=== PATIENT | female | born 1975 | race Caucasian/White ===

== ENCOUNTER 2017-06-22 21:46 | Inpatient (IN) ==
[2017-06-22] MEDS ORDERED: *HR* Midazolam HCl 2 MG/2 ML VIAL ONE (21:58)
[2017-06-22] MEDS ORDERED: *HR* Midazolam HCl 2 MG/2 ML VIAL IVP ONE (21:58)
[2017-06-22] MEDS ORDERED: D5 IVPB ONE (22:00)
[2017-06-22] MEDS ORDERED: FOSPHENYTOIN IVPB ONE (22:00)
[2017-06-22] MEDS ORDERED: WATER IVPB ONE (22:00)
[2017-06-22] MEDS ORDERED: 0.9 % Sodium Chloride 1,000 ML IVC ONE (22:02)
[2017-06-22 22:32] LABS: Amphetamine Screen,Urine Negative ng/mL (Cutoff=1000); Barbiturate Screen,Urine Negative ng/mL (Cutoff=200); Benzodiazepines Screen,Urine Positive ng/mL (Cutoff=200); Bilirubin,Urine Negative (Negative); Blood,Urine Negative (Negative); Cannabinoid Screen,Urine Negative ng/mL (Cutoff = 50); Clarity,Urine Clear (Clear); Cocaine Screen,Urine Negative ng/mL (Cutoff= 300); Color,Urine Yellow (Yellow); Glucose,Urine (UA) Normal (Normal); Ketones,Urine Negative (Negative); Leukocyte Esterase,Urine Negative (Negative); Nitrite,Urine Negative (Negative); Opiate Screen,Urine Negative ng/mL (Cutoff=300); PH,Urine 8.5 pH Units (5.0-8.0); Phencyclidine Screen,Urine Negative ng/mL (Cutoff=25); Protein,Urine Negative (Neg-Trace); Specific Gravity,Urine 1.015 (1.010-1.025); Urobilinogen,Urine Normal (Normal)
[2017-06-22 22:38] LABS: Basophils # 0.1 K/mcL (0.0-0.2); Basophils % 0.8 %; Eosinophils # 0.2 K/mcL (0.0-0.6); Hematocrit 38.2 % (35.3-44.9); Hemoglobin 12.5 g/dL (11.5-15.4); Immature Granulocytes % 0.5 % (0-4); Lymphocytes # 2.8 K/mcL (0.6-4.6); Lymphocytes % 26.8 %; Mean Corpuscular HGB Conc 32.7 g/dL (31.6-35.5); Mean Corpuscular Volume 91.6 fL (83.0-100.0); Mean Platelet Volume 9.3 fL (9.4-12.4); Monocytes # 0.6 K/mcL (0.0-1.3); Monocytes % 5.3 %; Neutrophils # 6.9 K/mcL (1.6-8.9); Platelet Count 310 K/mcL (140-400); Red Blood Count 4.17 M/mcL (3.82-4.97); Red Cell Distribution Width 14.6 % (11.5-14.5); Segmented Neutrophils % 64.6 %
[2017-06-22 22:52] LABS: Alanine Aminotransferase 27 Units/L (0-55); Albumin 3.4 g/dL (3.5-5.0); Albumin/Globulin Ratio 0.9 (1.1-2.2); Alkaline Phosphatase 73 Units/L (38-126); Aspartate Amino Transferase 30 Units/L (5-34); BUN/Creatinine Ratio 10 (6-26); Bilirubin,Total 0.2 mg/dL (0.2-1.2); Blood Urea Nitrogen 6 mg/dL (7-20); Calcium 9.4 mg/dL (8.6-10.8); Carbon Dioxide 20 mEq/L (19-29); Chloride 111 mEq/L (98-109); Glucose 107 mg/dL (70-99); Magnesium 1.7 mg/dL (1.6-2.6); Osmolality,Calculated 290 (280-300); Phosphorous 3.5 mg/dL (2.3-4.7); Potassium 3.4 mEq/L (3.5-4.5); Sodium 141 mEq/L (136-145); Total Protein 7.4 g/dL (6.0-8.3); eGFR For African Americans > 60 (> 60); eGFR For Non-African Americans > 60 (> 60)
[2017-06-22] MEDS ORDERED: Ketorolac 15 MG/ML VIAL IVP ONE (23:00)
[2017-06-22] MEDS ORDERED: Metoclopramide 10 MG/2 ML VIAL IVP ONE (23:01)
--- NOTE | 2017-06-22 23:05 | Emergency Department Note ---
Disposition Clinical Impression: Seizure, Hx of seizure disorder Disposition: Admitted As Inpatient Condition: Serious Referrals: NONE,PCP [Non-Partnered Physician] - Forms: ED Satisfaction Letter, Work/School Release Time of Disposition: 23:45 Seizure HPI - General Chief Complaint: ED General Medical Stated Complaint: seizure Time Seen by Provider: 06/22/17 21:52 Nursing Notes Reviewed: Yes Vital Signs Reviewed: Yes - History of Present Illness HPI Narrative: Patient is a 41-year-old female with history of previous seizures under care with neurology here [place]. Patient states she sees of neurology. Patient was in postictal state at time of initial exam. Patient states she is allergic to Ativan and diazepam. - Related Data Home Medications Medication Instructions Recorded Confirmed Oxcarbazepine [Trileptal] 600 mg PO BID 05/08/15 03/15/17 SUMAtriptan Succinate [Imitrex] 100 mg PO 1-2XD PRN 05/08/15 03/15/17 Clobazam [Onfi] 5 mg PO BID 02/28/17 03/15/17 Multivitamin [Multi-Day Vitamins] 1 tab PO DAILY 02/28/17 03/15/17 Previous Rx's Medication Instructions Recorded Topiramate [Topamax] 200 mg PO BID #60 tablet 01/11/16 Ciprofloxacin [Cipro] 500 mg PO BID #14 tablet 03/16/17 Allergies Allergy/AdvReac Type Severity Reaction Status Date / Time diazepam [From Valium] Allergy Anaphylaxis Verified 03/15/17 23:14 lorazepam [From Ativan] Allergy Anaphylaxis Verified 03/15/17 23:14 morphine AdvReac Agitated Verified 03/15/17 23:14 All systems ED: reviewed and negative except as stated. Review of Systems: As Per HPI Limitations: ROS unobtainable due to patients medical condition Past Medical History - Past Medical History Attestation: Yes The following information was validated with the patient. Source: patient, obtained from family Medical history: Reports: arthritis, COPD, diabetes, migraine, seizures Surgical history: Reports: no surgical history Psychiatric history: Reports: no psych history [employer] history: Reports: bilateral tubal ligation - Social History Smoking Status: Current every day smoker Smokeless Tobacco Status: No Alcohol use: Reports: none Drug use: Reports: none Physical Exam - General Limitations: altered mental status General appearance: alert, in distress - Eye Eye exam: Present: normal appearance, PERRL, EOMI - ENT ENT exam: normal exam, normal oropharynx, mucous membranes moist - Neck Neck exam: Present: normal inspection, full ROM, trachea midline - Chest Chest inspection: Present: normal inspection, symmetric chest wall rise - Respiratory Respiratory exam: Present: normal lung sounds bilaterally - Cardiovascular Cardiovascular exam: Present: regular rate, normal rhythm, normal heart sounds - Abdominal Exam Abdominal exam: Present: soft, Non-Tender. Absent: tenderness, distention, guarding, rebound, rigidity - Extremities Exam Extremities exam: Present: normal inspection, full ROM. Absent: tenderness, pedal edema Course Vital Signs Temperature 98.5 F 06/22/17 21:48 Pulse Rate 78 06/22/17 21:48 Respiratory Rate 20 06/22/17 21:48 Blood Pressure 114/71 06/22/17 21:48 O2 Sat by Pulse Oximetry 96 06/22/17 21:48 Temperature 98.5 F 06/22/17 21:48 Pulse Rate 78 06/22/17 21:48 Respiratory Rate 20 06/22/17 21:48 Blood Pressure 114/71 06/22/17 21:48 O2 Sat by Pulse Oximetry 96 06/22/17 21:48 Oxygen Delivery Oxygen Delivery Room Air Seizure - MDM Narrative Medical decision making narrative: Patient brought in the just after episode of seizure. Patient in a postictal state. Patient had cleared from medical where she was able to tell us that she is allergic to diazepam and Ativan. Patient could not answer much else. Patient went back to the seizure. Patient was given 2 mg of Versed. Seizure stopped and patient was placed on fosphenytoin. Patient says breaking out in hives placed on Reglan, Benadryl 50 mg, IV normal saline 1 L, given Toradol 10 mg IV to cover for migraine as well. CT scan of the head ordered awaiting results. Patient has admission pending. Neurology has been consulted. Patient states that she falls with neurology here Dr. Cormier but patient has no current records in the system. - Lab Data Lab results reviewed: Yes I reviewed the patient's lab results. Lab results narrative: Short CBC 06/22/17 Range/Units 22:30 WBC 10.6 (4.3-11.1) K/mcL Hgb 12.5 (11.5-15.4) g/dL Hct 38.2 (35.3-44.9) % Plt Count 310 (140-400) K/mcL Neutrophils # 6.9 (1.6-8.9) K/mcL BMP 06/22/17 Range/Units 22:30 Sodium 141 (136-145) mEq/L Potassium 3.4 L (3.5-4.5) mEq/L Chloride 111 H (98-109) mEq/L Carbon Dioxide 20 (19-29) mEq/L BUN 6 L (7-20) mg/dL Creatinine 0.59 (0.57-1.11) mg/dL Glucose 107 H (70-99) mg/dL Calcium 9.4 (8.6-10.8) mg/dL Liver Function 06/22/17 Range/Units 22:30 Total Bilirubin 0.2 (0.2-1.2) mg/dL AST 30 (5-34) Units/L ALT 27 (0-55) Units/L Alkaline Phosphatase 73 (38-126) Units/L Albumin 3.4 L (3.5-5.0) g/dL Urine 06/22/17 Range/Units 22:16 Urine Color Yellow (Yellow) Urine Clarity Clear (Clear) Urine pH 8.5 H (5.0-8.0) pH Units Ur Specific [place] 1.015 (1.010-1.025) Urine Protein Negative (Neg-Trace) mg/dL Urine Glucose (UA) Normal (Normal) mg/dL Result diagrams: 06/22/17 22:30 06/22/17 22:30 Lab Results 06/22/17 06/22/17 06/22/17 Range/Units 21:50 22:16 22:16 WBC (4.3-11.1) K/mcL RBC (3.82-4.97) M/mcL Hgb (11.5-15.4) g/dL Hct (35.3-44.9) % MCV (83.0-100.0) fL MCH (28.0-33.3) pg MCHC (31.6-35.5) g/dL RDW (11.5-14.5) % Plt Count (140-400) K/mcL MPV (9.4-12.4) fL Immature Gran % (0-4) % Seg Neutrophils % % Lymphocytes % % Monocytes % % Eosinophils % % Basophils % % Neutrophils # (1.6-8.9) K/mcL Lymphocytes # (0.6-4.6) K/mcL Monocytes # (0.0-1.3) K/mcL Eosinophils # (0.0-0.6) K/mcL Basophils # (0.0-0.2) K/mcL Sodium (136-145) mEq/L Potassium (3.5-4.5) mEq/L Chloride (98-109) mEq/L Carbon Dioxide (19-29) mEq/L BUN (7-20) mg/dL Creatinine (0.57-1.11) mg/dL Est GFR ( Amer) (> 60) Est GFR (Non-Af Amer) (> 60) BUN/Creatinine Ratio (6-26) Glucose (70-99) mg/dL POC Glucose 111 H (58-89) Calculated Osmolality (280-300) Calcium (8.6-10.8) mg/dL Phosphorus (2.3-4.7) mg/dL Magnesium (1.6-2.6) mg/dL Total Bilirubin (0.2-1.2) mg/dL AST (5-34) Units/L ALT (0-55) Units/L Alkaline Phosphatase (38-126) Units/L Serum Total Protein (6.0-8.3) g/dL Albumin (3.5-5.0) g/dL Globulin (2.4-3.5) g/dL Albumin/Globulin Ratio (1.1-2.2) Urine Color Yellow (Yellow) Urine Clarity Clear (Clear) Urine pH 8.5 H (5.0-8.0) pH Units Ur Specific [place] 1.015 (1.010-1.025) Urine Protein Negative (Neg-Trace) mg/dL Urine Glucose (UA) Normal (Normal) mg/dL Urine Ketones Negative (Negative) mg/dL Urine Blood Negative (Negative) Urine Nitrite Negative (Negative) Urine Bilirubin Negative (Negative) Urine Urobilinogen Normal (Normal) mg/dL Ur Leukocyte Esterase Negative (Negative) Urine Opiates Screen Negative (Qzxwvy=806) ng/mL Ur Barbiturates Screen Negative (Saordc=813) ng/mL Ur Phencyclidine Scrn Negative (Cutoff=25) ng/mL Ur Amphetamines Screen Negative (Ymywwa=3207) ng/mL U Benzodiazepines Scrn Positive H (Jepjys=545) ng/mL Urine Cocaine Screen Negative (Cutoff= 300) ng/mL U Marijuana (THC) Screen Negative (Cutoff = 50) ng/mL 06/22/17 06/22/17 Range/Units 22:30 22:30 WBC 10.6 (4.3-11.1) K/mcL RBC 4.17 (3.82-4.97) M/mcL Hgb 12.5 (11.5-15.4) g/dL Hct 38.2 (35.3-44.9) % MCV 91.6 (83.0-100.0) fL MCH 30.0 (28.0-33.3) pg MCHC 32.7 (31.6-35.5) g/dL RDW 14.6 H (11.5-14.5) % Plt Count 310 (140-400) K/mcL MPV 9.3 L (9.4-12.4) fL Immature Gran % 0.5 (0-4) % Seg Neutrophils % 64.6 % Lymphocytes % 26.8 % Monocytes % 5.3 % Eosinophils % 2.0 % Basophils % 0.8 % Neutrophils # 6.9 (1.6-8.9) K/mcL Lymphocytes # 2.8 (0.6-4.6) K/mcL Monocytes # 0.6 (0.0-1.3) K/mcL Eosinophils # 0.2 (0.0-0.6) K/mcL Basophils # 0.1 (0.0-0.2) K/mcL Sodium 141 (136-145) mEq/L Potassium 3.4 L (3.5-4.5) mEq/L Chloride 111 H (98-109) mEq/L Carbon Dioxide 20 (19-29) mEq/L BUN 6 L (7-20) mg/dL Creatinine 0.59 (0.57-1.11) mg/dL Est GFR ( Amer) > 60 (> 60) Est GFR (Non-Af Amer) > 60 (> 60) BUN/Creatinine Ratio 10 (6-26) Glucose 107 H (70-99) mg/dL POC Glucose (58-89) Calculated Osmolality 290 (280-300) Calcium 9.4 (8.6-10.8) mg/dL Phosphorus 3.5 (2.3-4.7) mg/dL Magnesium 1.7 (1.6-2.6) mg/dL Total Bilirubin 0.2 (0.2-1.2) mg/dL AST 30 (5-34) Units/L ALT 27 (0-55) Units/L Alkaline Phosphatase 73 (38-126) Units/L Serum Total Protein 7.4 (6.0-8.3) g/dL Albumin 3.4 L (3.5-5.0) g/dL Globulin 4.0 H (2.4-3.5) g/dL Albumin/Globulin Ratio 0.9 L (1.1-2.2) Urine Color (Yellow) Urine Clarity (Clear) Urine pH (5.0-8.0) pH Units Ur Specific [place] (1.010-1.025) Urine Protein (Neg-Trace) mg/dL Urine Glucose (UA) (Normal) mg/dL Urine Ketones (Negative) mg/dL Urine Blood (Negative) Urine Nitrite (Negative) Urine Bilirubin (Negative) Urine Urobilinogen (Normal) mg/dL Ur Leukocyte Esterase (Negative) Urine Opiates Screen (Mhupxj=435) ng/mL Ur Barbiturates Screen (Stqwyo=400) ng/mL Ur Phencyclidine Scrn (Cutoff=25) ng/mL Ur Amphetamines Screen (Kvzokw=2725) ng/mL U Benzodiazepines Scrn (Ipsgss=968) ng/mL Urine Cocaine Screen (Cutoff= 300) ng/mL U Marijuana (THC) Screen (Cutoff = 50) ng/mL - Radiology Data Radiology results reviewed: Yes I reviewed the patient's radiology results. - EKG Data EKG attestation: Yes I reviewed and interpreted this EKG. EKG results narrative: EKG taken June at 1252 hrs. shows sinus rhythm at a rate of 76 bpm with no acute ST elevations in any leads. EKG shows ST depressions in V3 V4 and V5. There is EKG for comparison taken 03/20/2016 pulse shows a sinus rhythm at a rate of 94 bpm. Short MN interval no acute ST depressions in any leads. No ST elevations either. Critical Care Time Critical Care Time: Yes Total Critical Care Time: 35 Attestation: Medical care time 35 minutes managing patient status epilepticus. Attestation Statement - Attestation Attestation: Patient was seen with resident physician. I reviewed the history, physical, assessment and plan, and agree with the findings. I also personally evaluated this patient and had [id number] time with this patient. 41-year-old female presents to emergency department with seizures. Patient's had a migraine for the last week. Apparently she fell and hit her head has been having seizures for the last week beyond what she usually has. She is followed by Dr. Genia urrutia [facility]. She has also had a migraine since the fall and she is not sure if this is the trigger. Upon initial presentation patient was postictal. She said she is allergic to Ativan. Patient then began seizing again. She was given Versed 2 mg to help resolve that. She provided some additional history stating that she had a headache. Denied other symptoms. Physical exam vital signs are stable. ENT unremarkable no signs of trauma. Next nontender. Heart and lungs normal. Abdomen is soft and nontender. Extremities unremarkable. Neurologically patient was postictal. There is no focal neurologic deficits. ED course workup was largely unremarkable. She was given Versed and fosphenytoin to control her seizures. She had multiple seizures while in the emergency department but not after she was given the fosphenytoin. Labs were largely unremarkable. CT scan was pending. We did talk to the hospitalist service to arrange for admission but they wanted to make sure the CT scan was clear prior to her coming to the floor. We felt this was reasonable. We signed the patient out to Dr. Bello for final disposition. I do not anticipate a positive head CT scan or disposition other than admitting the patient to the floor. If there are any changes he will provide appropriate addendum. I agree with the resident physician assessment and plan. Critical care time is 35 minutes to manage patient status epilepticus.
[2017-06-23] MEDS ORDERED: Naloxone 0.4 MG/ML INJ IVP PRN (05:59)
[2017-06-23] MEDS ORDERED: *HR* Promethazine 25 MG/ML VIAL IVP PRN (05:59)
--- NOTE | 2017-06-23 06:07 | Internal Med History&Physical ---
Date of Encounter: 06/23/17 Time of Encounter: 06:06 Assessment and Plan (1) Seizure Current visit: Yes Status: Acute Patient is known to have a seizure disorder. She has a follow-up in the neurology from this hospital. Patient is on 3 different antiepileptic medication. Patient is admitted with new onset of seizure. This is likely breakthrough seizures. Likely etiology for her breakthrough seizure is uncontrolled migraine episodes. Plan: 1 neurology on the board. 2 will make sure she gets all her pain medication. 3 fall precaution 4 seizures precaution During the evaluation patient also had another episode of seizure on the floor. Midazolam was given. Rapid response was called. Noted that patient had a fall and tutu CT scan of the spine as well as CT head was ordered. I reviewed the reports of the CT scan. I do not see any major, complex fracture or any traumatic evidence. (2) Lymphocytosis Current visit: No Status: Acute Patient has chronic lymphocytosis and she was seen by oncology. (3) Chronic migraine without aura, intractable, with status migrainosus Current visit: Yes Status: Acute We will control patient's migraine related issues. (4) DVT prophylaxis Current visit: Yes Status: Acute Heparin Medical decision making: This patient has a moderate to severe risk of worsening in spite of being on appropriate medication. Internal Medicine - H&P: HPI Chief complaint: Seizures Admitted From: Emergency Dept Plans for Post Hospital Care: Home History of present illness: 41/F PCP: Torsten pacheco Neurology: Dr Cormier. HPI: Patient had 2 episodes of seizures at home. Patient was unconscious for an unknown duration of time. Patient was evaluated in the emergency room. During the evaluation patient had another episode of seizure. Patient was given midazolam. Mid as well as about the patient's seizures. Patient had another episode of seizures in next 45 minutes. In between neurology was consulted. CT imaging of the brain was within normal limits. Patient was given fosphenytoin in the emergency room and she developed hives. Reason for admission: Recurrent seizures. Patient needs intravenous medication. Family history: Noncontributory Past Med Surg Social Fam HX - Past Medical History Medical history: arthritis, COPD, diabetes, migraine, seizures Psychiatric history: no psych history - Past Surgical History Surgical History: no surgical history - Social History Smoking Status: Current every day smoker Packs per day: 1 Smokeless Tobacco Status: No Alcohol use: none Drug use: none - Family History Mother Living Status: Still Living Hx Family Musculoskeletal Disorders: Yes (arthritis) Father Living Status: Still Living Hx Family Cardiac Disorders: Yes ([place]) Hx Family Cancer: Yes Hx Family Endocrine Disorder: Yes (DM) Internal Medicine - H&P: Meds Oxcarbazepine [Trileptal] 600 mg PO BID 05/08/15 [History] SUMAtriptan Succinate [Imitrex] 100 mg PO 1-2XD PRN 05/08/15 [History] Clobazam [Onfi] 10 mg PO DAILY 02/28/17 [History] Multivitamin [Multi-Day Vitamins] 1 tab PO DAILY 02/28/17 [History] Tizanidine HCl [Tizanidine HCl] 2 mg PO BID PRN 06/23/17 [History] Topiramate [Topiramate] 200 mg PO BID 06/23/17 [History] 3 Allergy/AdvReac Type Severity Reaction Status Date / Time diazepam [From Valium] Allergy Anaphylaxis Verified 03/15/17 23:14 lorazepam [From Ativan] Allergy Anaphylaxis Verified 03/15/17 23:14 fosphenytoin AdvReac Itching Verified 06/23/17 13:21 morphine AdvReac Agitated Verified 03/15/17 23:14 All Systems PM: A 10-system review of systems was performed and is negative for pertinent findings except as documented above in the HPI. - Constitutional Constitutional: no chills, no fever(s), no night sweats - EENT Eyes: no change in vision, no discharge, no pain, no photophobia Ears: no ear discharge, no ear pain, no tinnitus Nose, mouth and throat: no dysphagia, no nasal discharge, no neck pain, no sore throat - Cardiovascular Cardiovascular ROS IM: no chest pain, no diaphoresis, no dyspnea, no lightheadedness, no palpitations, no syncope - Respiratory Respiratory: no cough, no dyspnea, no wheezing, no excessive phlegm production - Gastrointestinal Gastrointestinal: no abdominal pain, no diarrhea, no hematemesis, no hematochezia, no melena, no nausea, no vomiting - Genitourinary Genitourinary: no change in urinary stream, no dysuria, no flank pain, no hematuria - Musculoskeletal Musculoskeletal ROS IM: no numbness, no tingling - Integumentary Integumentary IM: no rash, no unusual bruising - Neurological Neurological ROS: no confusion, no convulsions, no focal weakness, no numbness, no tingling, no tremor(s) - Hematologic/Lymphatic Hematologic/Lymphatic: no easy bruising - Constitutional Vitals: Temp Pulse Resp BP Pulse Ox 97.5 F L 64 19 140/81 98 06/23/17 02:54 06/23/17 02:54 06/23/17 02:54 06/23/17 02:54 06/23/17 02:54 General appearance: Present: A&O X 3, morbidly obese, pleasant, no acute distress, answers questions appropriately - Head Head exam: Present: atraumatic, normocephalic - Eye Eye exam: Present: PERRL, conjuntiva pink, sclera anicteric Pupils: Present: PERRL - Neck Neck exam general surgery: Present: supple, trachea midline. Absent: lymphadenopathy - Respiratory Respiratory exam: Present: CTAB. Absent: accessory muscle use, rales, rhonchi, wheezes - Cardiovascular Cardiovascular exam: Present: RRR, +S1, +S2. Absent: diastolic murmur, gallop, rubs, systolic murmur - GI/Abdominal GI/Abdominal exam: Present: normal bowel sounds, soft, no peritoneal signs. Absent: distended, tenderness - Extremities Exam Extremities exam: Present: warm, radial pulses palpable and symmetrical. Absent : calf tenderness, cyanotic, pedal edema - Neurological Exam Neurological exam: Present: CN II-XII intact, oriented X3, no focal deficits. Absent: pronater drift, facial droop, speech deficit - Skin Skin exam: Present: dry, intact Internal Med - H&P Results - Labs CBC & Chem 7: 06/22/17 22:30 06/22/17 22:30 - Impressions ITS Impressions Head CT 06/23/17 22:02 IMPRESSION: No acute intracranial abnormality. D/ / Dileep Maldonado MD / Dileep Maldonado MD Interpreting Provider: Dileep Maldonado MD
[2017-06-23] MEDS: 0.9 % Sodium Chloride 1,000 ML IVC SCH ×2 (07:42→16:22)
[2017-06-23] MEDS: Topiramate 100 MG TABLET PO SCH ×2 (07:46→22:22)
[2017-06-23] MEDS: OXcarbazepine 150 MG TABLET PO SCH ×2 (07:47→22:21)
[2017-06-23] MEDS: *HR* Heparin 5,000 UNIT/ML VIAL SQ SCH ×2 (07:47→16:22)
[2017-06-23] MEDS: CLOBAZAM 5 MG PO SCH ×2 (07:48→22:36)
[2017-06-23] MEDS: Acetaminophen 325 MG TABLET PO PRN ×2 (08:03→22:21)
[2017-06-23] MEDS ORDERED: *HR* LORazepam 2 MG/ML VIAL ONE (11:20)
[2017-06-23] MEDS ORDERED: Water for inj. (sterile) 0 ML IV ONE (11:20)
[2017-06-23] MEDS ORDERED: *HR* Succinylcholine 200 MG/10 ML VIAL IVP ONE (12:09)
--- NOTE | 2017-06-23 13:27 | Neurology - Consult Note ---
Date of Encounter: 06/23/17 Time of Encounter: 10:45 Assessment and Plan (1) Seizure Current Visit: Yes Status: Acute This patient who has an history of seizure disorder and has multiple seizures in the past and has been maintained on 3 different antiepileptic medication seems to have an breakthrough seizures perhaps it may be precipitated by acute migraine attack. Patient seemed to be back to her baseline no significant focal neurological deficits noted on her current neurological examination. As far as her seizures are constant at this time I would not recommend making any changes in her seizure medication suggested that we should continue on her home dose of Topamax 200 mg twice a day. Continue on Trileptal. Continue on ONFI. We will check the level of these medication to make sure that these are all therapeutic Check for underlying any metabolic abnormalities as well as for any underlying infection that may have precipitated these seizures beside her significant migraine attack She should remain on seizure precautions (2) Chronic migraine without aura, intractable, with status migrainosus Current Visit: Yes Status: Acute Patient had history of chronic migraine headaches and recently the headache seems to be getting worse she does have underlying lateral distress that slightly contributing but at the same time her headaches also seem to be worse during her menstrual cycle. Recently she has been having a lot of menstrual irregularities and in fact she supposed to get surgery in the next few days at [facility] [place]. For these acute headache that she has been complaining a suggest getting her some IV fluids and at the same time may give her a dose of Solu-Medrol she will continue on Zanaflex that she has been taking along with Imitrex on as needed basis for these acute migraine attack. Discussed in detail with the patient she IS AGGREABLE with the plan , if she remains stable she could be discharged by tomorrow History of Present Illness HPI: Ms. Huff is a 41 year old female who is known to me from office visits with a history of intractable epilepsy and has been maintained on multiple antiepileptic medications including Topamax, ONFI, and Trileptal. According to the patient she has been having increasing headaches predominantly around her menstrual cycle and this time her headache was so bad that she think that it may have precipitated her seizure she is not able to give much description about the seizure as she is not aware of her surroundings during this time. She was brought into the emergency room. She did have another seizure there was some concern that she may be due to status but apparently she was awake during this time and able to give information regarding her medication as well as the name of the doctor that she has been seen in the past. Regardless she was loaded with fosphenytoin and had an allergic reaction predominantly rash that was discontinued. Now she seemed to be back to her baseline she has been complaining of significant headaches she did have an history of chronic migraines and has been on medication for prevention but recently headache seems to be getting worse Past Med Surg Social Fam HX - Past Medical History Medical history: arthritis, COPD, diabetes, migraine, seizures Psychiatric history: no psych history - Past Surgical History Surgical History: no surgical history - Social History Smoking Status: Current every day smoker Packs per day: 1 Smokeless Tobacco Status: No Alcohol use: none Drug use: none - Family History Mother Living Status: Still Living Hx Family Musculoskeletal Disorders: Yes (arthritis) Father Living Status: Still Living Hx Family Cardiac Disorders: Yes ([place]) Hx Family Cancer: Yes Hx Family Endocrine Disorder: Yes (DM) Medications and Allergies Oxcarbazepine [Trileptal] 600 mg PO BID 05/08/15 [History] SUMAtriptan Succinate [Imitrex] 100 mg PO 1-2XD PRN 05/08/15 [History] Clobazam [Onfi] 5 mg PO BID 02/28/17 [History] Multivitamin [Multi-Day Vitamins] 1 tab PO DAILY 02/28/17 [History] Tizanidine HCl [Tizanidine HCl] 2 mg PO BID PRN 06/23/17 [History] Topiramate [Topiramate] 200 mg PO BID 06/23/17 [History] 3 Allergy/AdvReac Type Severity Reaction Status Date / Time diazepam [From Valium] Allergy Anaphylaxis Verified 03/15/17 23:14 lorazepam [From Ativan] Allergy Anaphylaxis Verified 03/15/17 23:14 fosphenytoin AdvReac Itching Verified 06/23/17 13:21 morphine AdvReac Agitated Verified 03/15/17 23:14 All Systems: A 10-system review of systems was performed and is negative for pertinent findings except as documented above in the HPI. Physical Examination - Vital Signs Vital Signs: Initial Vital Signs Temp Pulse Resp BP Pulse Ox 98.5 F 78 20 114/71 96 06/22/17 21:48 06/22/17 21:48 06/22/17 21:48 06/22/17 21:48 06/22/17 21:48 - Constitutional General appearance: comfortable - Neurologic Detailed motor examination: full strength in all major muscle groups Motor examination - right side: 02/08: deltoids, biceps, triceps, wrist flexion, wrist extension, slide maker, hip flexors, tibialis Anterior, quadriceps, toe extension (EHL), plantarflexion Motor examination - left side: 02/08: deltoids, biceps, triceps, wrist flexion, wrist extension, hip flexors, slide maker, quadriceps, tibialis Anterior, toe extension (EHL), plantarflexion Mental Status Examination: awake, alert, oriented to person, oriented to place, oriented to time, follows commands appropriately, answers questions appropriately, no agnosia, no aphasia, no aproxia Cranial nerve examination: PERRL, EOMI, visual temple intact, corneal reflexes brisk symmetrically, sensory to face intact, mastication intact, no facial asymmetry is present, no dysarthria, hearing is intact symmetrically, soft palate elevates bilaterally upon phonation, gag reflex intact, flexes SCM and trapezius muscles symmetrically with full power, tongue protrudes midline, no atrophy or facial fasiculations present Cerebellar examination: no dysmetria, performs finger to nose and heel to alston symmetrically without ataxia, no gait ataxia, no truncal ataxia, no difficulty with rapid alternating movements Results - Laboratory Findings CBC and BMP: 06/22/17 22:30 06/22/17 22:30 Abnormal lab findings: Abnormal lab results RDW 14.6 % (11.5-14.5) H 06/22/17 22:30 MPV 9.3 fL (9.4-12.4) L 06/22/17 22:30 Potassium 3.4 mEq/L (3.5-4.5) L 06/22/17 22:30 Chloride 111 mEq/L (98-109) H 06/22/17 22:30 BUN 6 mg/dL (7-20) L 06/22/17 22:30 Glucose 107 mg/dL (70-99) H 06/22/17 22:30 POC Glucose 125 (58-89) H 06/23/17 11:23 Albumin 3.4 g/dL (3.5-5.0) L 06/22/17 22:30 Globulin 4.0 g/dL (2.4-3.5) H 06/22/17 22:30 Albumin/Globulin Ratio 0.9 (1.1-2.2) L 06/22/17 22:30 Urine pH 8.5 pH Units (5.0-8.0) H 06/22/17 22:16 U Benzodiazepines Scrn Positive ng/mL ([id number]=204) H 06/22/17 22:16 Consult Discharge Plan - Plan Referrals: Torsten Ralph CNP [Primary Care Provider] -
[2017-06-23] MEDS ORDERED: *HR* Midazolam HCl 2 MG/2 ML VIAL IVP PRN (15:20)
[2017-06-23] MEDS ORDERED: levETIRAcetam 1,000 MG in 0.9 % Sodium Chloride 100 ML IVPB STA (15:41)
[2017-06-23] MEDS ORDERED: *HR* Midazolam HCl 2 MG/2 ML VIAL IVP SCH (15:45)
--- NOTE | 2017-06-23 15:57 | Event Note ---
<Dante Lua - Last Filed: 06/23/17 15:59> Date of Encounter: 06/23/17 Time of Encounter: 15:55 Rapid response was called to the patient having seizure activity. When I entered the room the patient had a generalized clonic tonic seizure. Versed 2 mg IV push was given immediately and the patient had a break in her seizure- like activity and was able to converse with staff and her mother. Approximately 5 minutes later the patient again had seizure activity. This again broke easily with Versed 2 mg IV push. I spoke with the neurologist health consultant who recommended loading with IV Keppra and ensuring that the patient takes her ONFI assuming she is able. We will transfer the patient to for closer monitoring. <Bacilio Naylor - Last Filed: 06/23/17 20:02> Date of Encounter: 06/23/17 Pt with 2 grand mal seizures - awakened between events. Family at bedside. Keppra to be given. Transfer to .
[2017-06-23] MEDS: *HR* Midazolam HCl 2 MG/2 ML VIAL IVP PRN ×5 (16:09→21:49)
[2017-06-23] MEDS: methylPREDNISolone 125 MG/2 ML VIAL IVP SCH (16:25)
[2017-06-23] MEDS: tiZANidine 4 MG TABLET PO PRN (22:36)
[2017-06-24 00:25] LABS: Bilirubin,Urine Negative (Negative); Blood,Urine Negative (Negative); Clarity,Urine Clear (Clear); Color,Urine Yellow (Yellow); Glucose,Urine (UA) Normal (Normal); Ketones,Urine Negative (Negative); Leukocyte Esterase,Urine Negative (Negative); Nitrite,Urine Negative (Negative); PH,Urine 7.5 pH Units (5.0-8.0); Protein,Urine Negative (Neg-Trace); Specific Gravity,Urine 1.008 (1.010-1.025); Urobilinogen,Urine Normal (Normal)
[2017-06-24 04:54] LABS: Basophils # 0.1 K/mcL (0.0-0.2); Basophils % 0.5 %; Eosinophils % 0.2 %; Hematocrit 36.1 % (35.3-44.9); Hemoglobin 11.8 g/dL (11.5-15.4); Immature Granulocytes % 0.7 % (0-4); Lymphocytes # 3.5 K/mcL (0.6-4.6); Lymphocytes % 31.6 %; Mean Corpuscular HGB Conc 32.7 g/dL (31.6-35.5); Mean Corpuscular Hemoglobin 30.6 pg (28.0-33.3); Mean Corpuscular Volume 93.5 fL (83.0-100.0); Monocytes # 0.4 K/mcL (0.0-1.3); Neutrophils # 6.9 K/mcL (1.6-8.9); Platelet Count 295 K/mcL (140-400); Red Blood Count 3.86 M/mcL (3.82-4.97); Red Cell Distribution Width 14.6 % (11.5-14.5)
[2017-06-24 05:01] LABS: Hemoglobin A1C 5.5 %
[2017-06-24 05:09] LABS: Alanine Aminotransferase 24 Units/L (0-55); Albumin/Globulin Ratio 0.8 (1.1-2.2); Alkaline Phosphatase 63 Units/L (38-126); Aspartate Amino Transferase 25 Units/L (5-34); BUN/Creatinine Ratio 13 (6-26); Bilirubin,Total 0.2 mg/dL (0.2-1.2); Blood Urea Nitrogen 7 mg/dL (7-20); Calcium 8.2 mg/dL (8.6-10.8); Carbon Dioxide 19 mEq/L (19-29); Chloride 113 mEq/L (98-109); Chol/HDL Ratio 6.3 (0-4.9); Cholesterol 202 mg/dL (< 200); Globulin 3.7 g/dL (2.4-3.5); Glucose 98 mg/dL (70-99); HDL Cholesterol 32 mg/dL (40-59); LDL Cholesterol,Calculated 117 mg/dL (0-99); Osmolality,Calculated 284 (280-300); Phosphorous 3.1 mg/dL (2.3-4.7); Potassium 3.8 mEq/L (3.5-4.5); Sodium 138 mEq/L (136-145); Total Protein 6.7 g/dL (6.0-8.3); Triglycerides 263 mg/dL (< 150); eGFR For African Americans > 60 (> 60); eGFR For Non-African Americans > 60 (> 60)
[2017-06-24] MEDS: *HR* Midazolam HCl 2 MG/2 ML VIAL IVP PRN (05:20)
[2017-06-24] MEDS ORDERED: 0.9 % Sodium Chloride 1,000 ML ONE (05:52)
[2017-06-24] MEDS ORDERED: *HR* Midazolam HCl 2 MG/2 ML VIAL ONE (06:04)
--- NOTE | 2017-06-24 06:08 | Procedure Note ---
Date of procedure: 06/24/17 Pre-op diagnosis: Seizure Post-op diagnosis: same Procedure: The patient was placed in a flat position. Sedation was obtained using Versed 4mg, and additionally with Etomidate 20mg. The patient was easily ventilated using an ambu bag. The MAC 3 BLADE was used and inserted into the oropharynx at which time there was a Grade 1 view of the vocal cords. A 7.5-swiss endotracheal tube was inserted and visualized going through the vocal cords. The stylette was removed. Colorimetric change was visualized on the CO2 meter. Breath sounds were heard in both lung temple equally. The endotracheal tube was placed at 23 cm, measured at the teeth. Dr. Cabrera was present for the entire procedure. A chest x-ray was ordered to assess for pneumothorax and verify endotrachealtube placement. Estimated Blood Loss: 0cc The patient tolerated the procedure well and there were no complications. Anesthesia: IV sedation Surgeon: Tc Arthur Estimated blood loss (cc): 0 Pathology: none sent Condition: critical Disposition: ICU
--- NOTE | 2017-06-24 06:16 | Event Note ---
<Tc Arthur - Last Filed: 06/24/17 06:26> Date of Encounter: 06/24/17 Time of Encounter: 05:35 Rapid response was called at 0534 due to recurrent seizure activity despite Versed 2mg IVP at 0520. Patient had three prior seizures yesterday night and was given Versed with relief of symptoms. This time her seizure activity was refractory to Versed and appeared to be in status epilepticus. Upon entering the room patient began having another seizure and an additional 4mg of Versed was administered. Decision was made to intubate patient and transfer to ICU on Versed drip. A total of 20mg of Versed has been given, 20mg of Etomidate during intubation, and 100mg of Succinycholine. Please see intubation note. Neurology was called. Neurologist, Dr. Cormier, requested Stat EEG and Profolol drip. Pulmonology was consulted for ventilator management. <Quinton Cabrera - Last Filed: 06/24/17 06:43> Date of Encounter: 06/24/17 Rapid response was called due to intractable seizures. Patient required multiple doses of Versed. She was successfully intubated. Patient is currently on a Versed drip and has also been started on Propofol. IV Keppra has also been given. I discussed with Dr. Cormier and he wants a stat EEG. Patient's mother has been explained about guarded condition and prognosis.
[2017-06-24] MEDS ORDERED: levETIRAcetam 1,000 MG in 0.9 % Sodium Chloride 100 ML IVPB ONE (06:27)
[2017-06-24] MEDS: *HR* Heparin 5,000 UNIT/ML VIAL SQ SCH ×2 (06:59→17:28)
[2017-06-24] MEDS: methylPREDNISolone 125 MG/2 ML VIAL IVP SCH ×2 (06:59→17:27)
--- NOTE | 2017-06-24 07:34 | Pulmonology Consult Note ---
<Sheyla Rick - Last Filed: 06/24/17 12:20> Date of Encounter: 06/24/17 Time of Encounter: 07:00 Assessment and Plan (1) Status epilepticus Current Visit: Yes Status: Acute This patient has multiple tonic-clonic seizures without returning back to her baseline she had to be intubated and sedated now. EEG was completed that did not show any nonconvulsive status. Continue on propofol and slowly taper her off the Versed drip. IV Keppra 100mg BID, level drawn today Continue on Trileptal as well as ONFI, via NG tube Trying to R/O infectious etiologies for her condition though overall does not look like that she has any sign of FINANCIAL INSTITUTION MANAGER infection. LP will be completed along with addition of vanc/acyclovir/ceftriaxone. Also checking for any underlying vascular anomaly. CT of the head was negative. MRI/MRA of the head and MRA of the neck to be completed as well. (2) Endotracheally intubated Current Visit: Yes Status: Acute Patient intubated due to status epilepticus. Follow ventilation bundle along with trending ABGs. Once patient is stable plan to extubate. (3) Hx of seizure disorder Current Visit: Yes Status: Acute Patient is known to have a seizure disorder. Outpatient follow-up with neurology. Patient currently on 3 antiepileptic medications at home. Neurology consultation (4) Chronic migraine without aura, intractable, with status migrainosus Current Visit: Yes Status: Acute Continue home medications. Follow up as an outpatient for further treatment. (5) DVT prophylaxis Current Visit: Yes Status: Acute History of Present Illness Consult date: 06/24/17 Chief complaint: Status Epilepticus History of present illness: 41-year-old female past medical history of seizure admitted from the emergency department for status epilepticus. The patient has not come out of her post ictal state and is now intubated therefore majority of the information for the subjective part of this note came from charts. Patient went to [place] emergency Department after 2 seizures yesterday. She is allergic to diazepam and lorazepam. The seizure broke after multiple medicine attempts and was transferred to the floor. On the floor patient started to seize and the seizure cannot be broken. Patient was intubated and placed on propofol and midazolam for sedation. CT of the head in the emergency Department was within normal limits. Neurology consulted and will complete an EEG today. Plan to get an MRA and MRI of the head along with an MRA of the neck today to rule out any intracranial abnormality. Patient also to receive a lumbar puncture today. Prophylactically going to treat for meningitis due to increase in seizure- like activity recently along with increasing migraines. Patient also recently went to a chiropractor and had her neck adjusted due to increasing migraines over the past few weeks. Patient currently intubated and sedated at this time. Past Med Surg Social Fam HX - Past Medical History Medical history: arthritis, COPD, diabetes, migraine, seizures Psychiatric history: no psych history - Past Surgical History Surgical History: no surgical history - Social History Smoking Status: Current every day smoker Packs per day: 1 Smokeless Tobacco Status: No Alcohol use: none Drug use: none - Family History Mother Living Status: Still Living Hx Family Musculoskeletal Disorders: Yes (arthritis) Father Living Status: Still Living Hx Family Cardiac Disorders: Yes ([place]) Hx Family Cancer: Yes Hx Family Endocrine Disorder: Yes (DM) Medications and Allergies Oxcarbazepine [Trileptal] 600 mg PO BID 05/08/15 [History] SUMAtriptan Succinate [Imitrex] 100 mg PO 1-2XD PRN 05/08/15 [History] Clobazam [Onfi] 10 mg PO DAILY 02/28/17 [History] Multivitamin [Multi-Day Vitamins] 1 tab PO DAILY 02/28/17 [History] Tizanidine HCl [Tizanidine HCl] 2 mg PO BID PRN 06/23/17 [History] Topiramate [Topiramate] 200 mg PO BID 06/23/17 [History] 3 Allergy/AdvReac Type Severity Reaction Status Date / Time diazepam [From Valium] Allergy Anaphylaxis Verified 03/15/17 23:14 lorazepam [From Ativan] Allergy Anaphylaxis Verified 03/15/17 23:14 fosphenytoin AdvReac Itching Verified 06/23/17 13:21 morphine AdvReac Agitated Verified 03/15/17 23:14 ROS unobtainable: due to endotracheal tube All Systems: A 10-system review of systems was performed and is negative for pertinent findings except as documented above in the HPI. Physical Examination Vital Signs: Vital Signs, Last 4 Hours Temp Pulse Resp BP Pulse Ox 09/18/17 06:23 26 149/87 95 09/18/17 06:22 15 90 06/24/17 06:09 96.8 F L 107 29 163/101 99 06/24/17 05:40 64 112/67 97 06/24/17 04:23 98.3 F 64 18 112/67 97 General appearance: comatose Eyes: nonicteric ENT: oropharynx moist Neck: supple, no JVD Effort: normal Inspection: normal Auscultation: bilateral: clear Cardiovascular: regular rate and rhythm Gastrointestinal: normoactive bowel sounds, soft, non-distended Integumentary: normal Extremities: no cyanosis, no edema Musculoskeletal: no deformities Gait: normal posture unable to assess due to mental status Ventilator Settings Ventilator Settings: Ventilator Settings, Last 8 Hours Ventilator Mode VC+ Ventilator Mode A/C Ventilator Tidal Volume 450 Setting Ventilator Tidal Volume 450 Setting Ventilator Respiratory Rate 16 Setting Ventilator Respiratory Rate 16 Setting Actual Respiratory Rate 26 Positive End Expiratory 5 Pressure Positive End Expiratory 8 Pressure Peak Inspiratory Airway 30 Pressure Results - Laboratory Findings CBC and BMP: 06/24/17 04:18 06/24/17 04:18 Abnormal lab findings: Abnormal lab results RDW 14.6 % (11.5-14.5) H 06/24/17 04:18 Chloride 113 mEq/L (98-109) H 06/24/17 04:18 Creatinine 0.55 mg/dL (0.57-1.11) L 06/24/17 04:18 POC Glucose 137 (58-89) H 06/24/17 06:17 Calcium 8.2 mg/dL (8.6-10.8) L 06/24/17 04:18 Albumin 3.0 g/dL (3.5-5.0) L 06/24/17 04:18 Globulin 3.7 g/dL (2.4-3.5) H 06/24/17 04:18 Albumin/Globulin Ratio 0.8 (1.1-2.2) L 06/24/17 04:18 Triglycerides 263 mg/dL (< 150) H 06/24/17 04:18 Cholesterol 202 mg/dL (< 200) H 06/24/17 04:18 LDL Cholesterol, Calc 117 mg/dL (0-99) H 06/24/17 04:18 VLDL Cholesterol, Calc 53 mg/dL (< 31) H 06/24/17 04:18 HDL Cholesterol 32 mg/dL (40-59) L 06/24/17 04:18 Cholesterol/HDL Ratio 6.3 (0-4.9) H 06/24/17 04:18 Ur Specific Young 1.008 (1.010-1.025) L 06/24/17 00:05 U Benzodiazepines Scrn Positive ng/mL (Vbeofs=369) H 06/22/17 22:16 - Diagnostic Findings Chest x-ray: report reviewed, image reviewed - Clinical Findings Intake & Output: Intake & Output 06/23/17 06/23/17 06/24/17 15:59 23:59 07:59 Intake Total 480 / 480 1110 / 1110 345 / 345 Output Total 1000 / 1000 700 / 700 810 / 810 Balance -520 / -520 410 / 410 -465 / -465 Weight 106.4 kg Consult Discharge Plan - Plan Referrals: Torsten Ralph, COUNTING MACHINE OPERATOR [Primary Care Provider] - <Hola Sanchez - Last Filed: 06/24/17 14:09> Date of Encounter: 06/24/17 All Systems: A 10-system review of systems was performed and is negative for pertinent findings except as documented above in the HPI. Physical Examination Vital Signs: Vital Signs, Last 4 Hours Temp Pulse Resp BP Pulse Ox 06/24/17 09:00 98.1 F 62 17 134/92 99 06/24/17 08:00 96.8 F L 62 16 116/84 98 06/24/17 07:29 16 98 06/24/17 07:27 70 16 120/90 98 06/24/17 06:23 26 149/87 95 06/24/17 06:22 15 90 06/24/17 06:09 96.8 F L 107 29 163/101 99 Ventilator Settings Ventilator Settings: Ventilator Settings, Last 8 Hours Ventilator Mode VC+ Ventilator Mode VC+ Ventilator Mode VC+ Ventilator Mode VC+ Ventilator Mode VC+ Ventilator Mode A/C Ventilator Tidal Volume 450 Setting Ventilator Tidal Volume 450 Setting Ventilator Tidal Volume 450 Setting Ventilator Tidal Volume 450 Setting Ventilator Tidal Volume 450 Setting Ventilator Tidal Volume 450 Setting Ventilator Respiratory Rate 16 Setting Ventilator Respiratory Rate 16 Setting Ventilator Respiratory Rate 16 Setting Ventilator Respiratory Rate 16 Setting Ventilator Respiratory Rate 16 Setting Ventilator Respiratory Rate 16 Setting Actual Respiratory Rate 17 Actual Respiratory Rate 16 Actual Respiratory Rate 17 Actual Respiratory Rate 16 Actual Respiratory Rate 26 Positive End Expiratory 5 Pressure Positive End Expiratory 5 Pressure Positive End Expiratory 5 Pressure Positive End Expiratory 5 Pressure Positive End Expiratory 5 Pressure Positive End Expiratory 8 Pressure Peak Inspiratory Airway 29 Pressure Peak Inspiratory Airway 29 Pressure Peak Inspiratory Airway 31 Pressure Peak Inspiratory Airway 31 Pressure Peak Inspiratory Airway 30 Pressure Results - Laboratory Findings CBC and BMP: 06/24/17 04:18 06/24/17 04:18 Abnormal lab findings: Abnormal lab results RDW 14.6 % (11.5-14.5) H 06/24/17 04:18 Chloride 113 mEq/L (98-109) H 06/24/17 04:18 Creatinine 0.55 mg/dL (0.57-1.11) L 06/24/17 04:18 POC Glucose 137 (58-89) H 06/24/17 06:17 Calcium 8.2 mg/dL (8.6-10.8) L 06/24/17 04:18 Albumin 3.0 g/dL (3.5-5.0) L 06/24/17 04:18 Globulin 3.7 g/dL (2.4-3.5) H 06/24/17 04:18 Albumin/Globulin Ratio 0.8 (1.1-2.2) L 06/24/17 04:18 Triglycerides 263 mg/dL (< 150) H 06/24/17 04:18 Cholesterol 202 mg/dL (< 200) H 06/24/17 04:18 LDL Cholesterol, Calc 117 mg/dL (0-99) H 06/24/17 04:18 VLDL Cholesterol, Calc 53 mg/dL (< 31) H 06/24/17 04:18 HDL Cholesterol 32 mg/dL (40-59) L 06/24/17 04:18 Cholesterol/HDL Ratio 6.3 (0-4.9) H 06/24/17 04:18 Ur Specific Young 1.008 (1.010-1.025) L 06/24/17 00:05 Phenytoin 1.2 mcg/mL (10-20) L 06/24/17 04:18 U Benzodiazepines Scrn Positive ng/mL (Ncrhow=909) H 06/22/17 22:16 - Clinical Findings Intake & Output: Intake & Output 06/23/17 06/24/17 06/24/17 23:59 07:59 15:59 Intake Total 1110 / 1110 455 / 455 Output Total 700 / 700 810 / 810 Balance 410 / 410 -355 / -355 Weight 107.3 kg 107.3 kg - Attending Attestation I examined this patient and my medical decision-making was reviewed with the Resident Physician. I agree with the documented findings, disposition and treatment plan as described except to the extent set forth below. We independently had [id number] contact with the patient Patient seen and examined at bedside Labs, radiology, chart personally reviewed. Management was reviewed during multidisciplinary critical care rounds. Neuropsych: Status epilepticus in the patient with known underlying epilepsy this is likely related non-therapeutic level of multiple antiepileptic medications or possibly migraine. She is well known to the neurology service was following the patient while in house also had recent cervical manipulation by a chiropractor. Possible antecedents although felt less likely but cannot be excluded at this time would be meningitis or CVA. EEG performed today pending results she continues on infusion of propofol and Versed which we will attempt to decrease additionally plan for LP performed by anesthesia or interventional radiology given habitus and prior history of surgery and starting empiric antimicrobials. We will also obtain a MRA of the patient's head and neck Pulm: Patient has been intubated and is on the ventilator for airway protection while receiving continuous infusions of sedatives including propofol and Versed. Spontaneous breathing trial when no longer requiring infusion of sedatives Cards: Blood pressure controlled FEN-GI: Nothing by mouth for now continue PPI prophylaxis to prevent stress ulcers Renal: No evidence of ROCHELLE continue maintenance infusion of crystalloid ID: Possible although considered very unlikely bacterial meningitis versus viral meningitis Heme/Onc: DVT prophylaxis given Endo: Glucose Monitored Integ/MSK: Skin Care per routine ICU Nursing Protocol to prevent ulcers. Lines: All lines examined without evidence of infection Dispo: Remain in ICU today CODE: Full code family including mother and brother updated at bedside
[2017-06-24] MEDS ORDERED: Lacri-Lube 3.5 GM TUBE BOTH EYES PRN (07:55)
[2017-06-24] MEDS: OXcarbazepine 150 MG TABLET PO SCH ×2 (08:14→20:39)
[2017-06-24] MEDS: CLOBAZAM 5 MG PO SCH ×2 (08:14→20:39)
[2017-06-24] MEDS ORDERED: Vancomycin 2,000 MG in D5% in Water 500 ML IVPB ONE (08:45)
[2017-06-24] MEDS ORDERED: 0.9 % Sodium Chloride 1,000 ML IVC SCH (09:00)
[2017-06-24] MEDS: Topiramate 100 MG TABLET PO SCH ×2 (09:10→20:39)
[2017-06-24] MEDS: Lacri-Lube 3.5 GM TUBE BOTH EYES SCH ×5 (09:10→21:11)
[2017-06-24] MEDS: Chlorhexidine Rinse 15 ML MOUTHWASH MM SCH ×2 (09:11→20:00)
[2017-06-24] MEDS: Pantoprazole 40 MG VIAL IVP SCH (09:11)
--- NOTE | 2017-06-24 09:38 | EEG/EMG/Oth Biometrics Report ---
EEG Procedure Report Date of procedure: 06/24/17 Procedure Note: STAT eeg on pt who noted to have status , now intubated, off sedation, before the EEG Routine 21-channel digital EEG was obtained to rule out any seizure activity or focal abnormalities. FINDINGS: Background rhythm during awake stage shows well organized, low voltage fast beta activity in the anterior regions. No [id number] discharges or any lateralizing abnormalities are seen. EMG artifacts and tremor artifacts are noted making the study suboptimal. Photic stimulation did not produce any abnormalities. Stage II sleep was not observed. IMPRESSION: No clear paroxysmal activities or epileptiform discharges were seen. Prominent beta activity in the anterior regions could be secondary to anxiety or medication effect. ( no Post ictal slowing noted)
--- NOTE | 2017-06-24 10:55 | Neurology Progress Note ---
Date of Encounter: 06/24/17 Time of Encounter: 07:35 Assessment and Plan (1) Status epilepticus Current Visit: Yes Status: Acute This patient has multiple tonic-clonic seizures without returning back to her baseline she has to be intubated and sedated now. We just did a stat EEG that did not show any nonconvulsive status. At the moment I suggest that we should continue on propofol and slowly taper her off the Versed drip. She would continue on multiple antiepileptic medication including IV Keppra. Level has been drawn today At the same time she would continue on Trileptal as well as ONFI, via NG tube At the same time we are looking for other infectious etiologies for her condition though overall does not look like that she has any sign of HARNESS INSPECTOR infection but I think the BE reasonable to proceed with a spinal tap she is been started on broad-spectrum antibiotics I suggested that he should continue At the same time also check for any underlying vascular anomaly CT of the head was negative for any acute bleed or infarct but I think once she is a stable he should proceed with the MRI of the brain as well as MRA of the neck with a recent history of chiropractic manipulation for these increasing headaches that she has been experiencing Discussed with the ICU team , as well as with family, will follow patient with you. (2) Seizure Current Visit: Yes Status: Acute (3) Chronic migraine without aura, intractable, with status migrainosus Current Visit: Yes Status: Acute Subjective Interval history: Patient went into status earlier this morning and has to be intubated and now she has been transferred to the ICU she remain on Versed and propofol. She continued to be on her seizure medication Keppra has been added and she has been getting IV Keppra now. Objective - Constitutional Vitals: Temp Pulse Resp BP Pulse Ox 98.1 F 71 17 101/69 99 06/24/17 09:00 06/24/17 10:00 06/24/17 10:00 06/24/17 10:00 06/24/17 10:00 - Neurological Exam Sensorimotor examination: Present: other (Patient is currently intubated and sedated. She is moving all 4 extremities and she is also sedation no focal motor deficit noted on exam) Motor Examination: Present: full strength in all major muscle groups Motor examination - left side: 5/5: deltoids, biceps, triceps, wrist flexion, wrist extension, hip flexors, wind turbine technician, quadriceps, tibialis Anterior, toe extension (EHL), plantarflexion Mental Status Examination: Present: awake, alert, oriented to person, oriented to place, oriented to time, follows commands appropriately, answers questions appropriately, no agnosia, no aphasia, no aproxia Cranial nerve examination: Present: PERRL, EOMI, visual temple intact, corneal reflexes brisk symmetrically, sensory to face intact, mastication intact, no facial asymmetry is present, no dysarthria, hearing is intact symmetrically, soft palate elevates bilaterally upon phonation, gag reflex intact, flexes SCM and trapezius muscles symmetrically with full power, tongue protrudes midline, no atrophy or facial fasiculations present Cerebellar examination: Present: no dysmetria, performs finger to nose and heel to alston symmetrically without ataxia, no gait ataxia, no truncal ataxia, no difficulty with rapid alternating movements Results - Laboratory Findings CBC and BMP: 06/24/17 04:18 06/24/17 04:18 Abnormal lab findings: Abnormal lab results RDW 14.6 % (11.5-14.5) H 06/24/17 04:18 Chloride 113 mEq/L (98-109) H 06/24/17 04:18 Creatinine 0.55 mg/dL (0.57-1.11) L 06/24/17 04:18 POC Glucose 137 (58-89) H 06/24/17 06:17 Calcium 8.2 mg/dL (8.6-10.8) L 06/24/17 04:18 Albumin 3.0 g/dL (3.5-5.0) L 06/24/17 04:18 Globulin 3.7 g/dL (2.4-3.5) H 06/24/17 04:18 Albumin/Globulin Ratio 0.8 (1.1-2.2) L 06/24/17 04:18 Triglycerides 263 mg/dL (< 150) H 06/24/17 04:18 Cholesterol 202 mg/dL (< 200) H 06/24/17 04:18 LDL Cholesterol, Calc 117 mg/dL (0-99) H 06/24/17 04:18 VLDL Cholesterol, Calc 53 mg/dL (< 31) H 06/24/17 04:18 HDL Cholesterol 32 mg/dL (40-59) L 06/24/17 04:18 Cholesterol/HDL Ratio 6.3 (0-4.9) H 06/24/17 04:18 Ur Specific [place] 1.008 (1.010-1.025) L 06/24/17 00:05 Phenytoin 1.2 mcg/mL (10-20) L 06/24/17 04:18 U Benzodiazepines Scrn Positive ng/mL (Jovekn=206) H 06/22/17 22:16 Consult Discharge Plan - Plan Referrals: Torsten Ralph, ASSIGNMENT EDITOR [Primary Care Provider] -
[2017-06-24 11:15] LABS: ABG Base Excess -6.2 mEq/L (-2.0 to 3.0); ABG HCO3 20 mEq/L (21-27); ABG Oxygen Saturation 99 % (95-98); ABG PCO2 39 mmHg (35-45); ABG PH 7.31 pH Units (7.32-7.45); ABG PO2 148 mmHg (85-104); ABG TCO2 20.8 mEq/L (20-26); Blood Gas FiO2 50 %
[2017-06-24] MEDS ORDERED: *HR* Dextrose 50 % in Water (Syg) 50 ML SYRINGE IVP PRN (11:21)
[2017-06-24] MEDS ORDERED: D5% in Water 1,000 ML IVC PRN (11:21)
[2017-06-24] MEDS ORDERED: Dextrose Gel 15 GM PO PRN ×2 (11:21)
[2017-06-24] MEDS: Acyclovir 750 MG in D5% in Water 250 ML IVPB SCH ×2 (11:33→18:28)
[2017-06-24] MEDS: Insulin LISPRO 300 UNITS/3 ML VIAL SQ SCH ×2 (11:50→18:27)
[2017-06-24 11:58] LABS: Bilirubin,Urine Negative (Negative); Blood,Urine Negative (Negative); Color,Urine Yellow (Yellow); Glucose,Urine (UA) Normal (Normal); Ketones,Urine Negative (Negative); Leukocyte Esterase,Urine Negative (Negative); Nitrite,Urine Negative (Negative); Protein,Urine Negative (Neg-Trace); Specific Gravity,Urine 1.015 (1.010-1.025); Urobilinogen,Urine Normal (Normal)
[2017-06-24 12:02] LABS: Clarity,Urine Clear (Clear)
[2017-06-24] MEDS ORDERED: *HR* Midazolam HCl 2 MG/2 ML VIAL IV ONE (12:09)
[2017-06-24] MEDS ORDERED: *HR* Midazolam HCl 5 MG/5 ML VIAL IVP ONE (12:09)
[2017-06-24] MEDS ORDERED: *HR* Etomidate 20 MG/10 ML AMPUL IVP ONE (12:09)
[2017-06-24] MEDS: Ringers Solution, Lactated 1,000 ML IVC SCH ×2 (12:30→19:41)
--- NOTE | 2017-06-24 13:14 | Anesthesia Procedures ---
Date of Encounter: 06/24/17 Time of Encounter: 12:30 Procedures: Anesthesia - Lumbar Puncture Patient ID/Chart reviewed: Yes Patient examined: Yes Any signs of Infection or bacteremia: No Patient on Blood thinners: No Consent Obtained: written consent (by mother "Ainsley") Time Out Performed: Yes Patient Position: right lateral decubitus Site Prep: Aseptic Technique, Sterile prep and drape, Povidone-Iodine 1% Local Anesthetic Used: Lidocaine 1% Amount of anesthesia used (mls): 3 Spinal Needle Gauge: 20G Interspace Used: L4-L5 Opening Pressure (cmH20): 21 Fluid Initially Obtained: clear Complications: none Additional Comments:: Patient in the ICU on the ventilator. Patient with intractable seizures. History of seizures since age 9. Have never been well controlled per the mother. Neurology requested the LP but felt that they could not do it due to size and previous back surgery. IR would not perform due to being on the ventilator. I was able to access the intrathecal space easily, initially had some blood but this cleared quickly. 4 tubes obtained with approximately 2cc in each. Opening pressure was 21. Fluid was clear and colorless. Bandaide applied after needle withdrawn.
[2017-06-24 13:32] LABS: Red Blood Cell,CSF < 0.002 M/mcL
[2017-06-24 14:13] LABS: Glucose,CSF 113 mg/dL (40-70); Total Protein,CSF 46 mg/dL (15-45)
[2017-06-24 14:31] LABS: Appearance,CSF Clear (Clear)
[2017-06-24] MEDS ORDERED: Dexmedetomidine HCl 400 MCG/100 ML MLS IVC SCH (15:45)
[2017-06-24] MEDS ORDERED: Ketorolac 15 MG/ML VIAL IVP ONE (20:01)
[2017-06-24] MEDS: levETIRAcetam 1,000 MG in 0.9 % Sodium Chloride 100 ML IVPB SCH (20:38)
[2017-06-24] MEDS: tiZANidine 4 MG TABLET PO PRN (20:43)
--- NOTE | 2017-06-24 21:51 | Electrocardiograph Report ---
[address] [place] [address] Test Date: 2017-06-22 Pat Name: Faiza Huff Department: 105 Room: 12 Gender: F Reconstructive Dentist: GABE : 1975 Requested By: Harmeet Ignacio Order Number: [id number] Reading MD: Steve Sandy MD Measurements Intervals [place] Rate: 76 P: 138 TN: 102 QRS: 160 QRSD: 89 T: 129 QT: 407 QTc: 437 Interpretive Statements SINUS RHYTHM WITH SHORT TN INTERVAL BASELINE ARTIFACT Electronically Signed On 06-24-2017 21:50:31 EDT by Steve Sandy MD
[2017-06-25] MEDS: *HR* Midazolam HCl 2 MG/2 ML VIAL IVP PRN (00:20)
[2017-06-25] MEDS ORDERED: *HR* Midazolam HCl 2 MG/2 ML VIAL IVP ONE ×2 (00:37→01:16)
[2017-06-25] MEDS ORDERED: 0.9 % Sodium Chloride 1,000 ML IV ONE (01:05)
[2017-06-25] MEDS ORDERED: 0.9 % Sodium Chloride 1,000 ML ONE (01:07)
--- NOTE | 2017-06-25 01:41 | Event Note ---
<Tc Arthur - Last Filed: 06/25/17 01:51> Date of Encounter: 06/25/17 Time of Encounter: 01:36 Patient had recurrent seizure activity x3 despite 4mg of Versed being administered. Patient began seizing repeatedly every few minutes and a call was placed to critical care physician, Dr. Sanchez. Patient had a total of 5 seizures before decision was made to reintubate patient and re-sedate on Versed and Propofol drip. The patient was placed in a flat position. A total of Versed 24mg and Etomidate 20mg were given during intubation. The patient was easily ventilated using an ambu bag. The MAC 3 BLADE was attempted at first but the patient had difficult airway and I was unable to successfully cannulate the airway. The airway was successfully cannulated by respiratory therapy with the Glidoscope after an intubation attempt by Dr. Hernandez. A 7.5-kenyan endotracheal tube was inserted and visualized going through the vocal cords. The stylette was removed. Colorimetric change was visualized on the CO2 meter. Breath sounds were heard in both lung temple equally. The endotracheal tube was placed at 21 cm, measured at the teeth. Dr. Hernandez was present for the entire procedure. A chest x-ray was ordered to assess for pneumothorax and verify endotracheal tube placement. KUB was ordered to verify OG tube placement. Estimated Blood Loss: 0cc. The patient tolerated the procedure well and there were no complications. A call was place to Neurologist, Dr. Cormier who agreed with current plan. <Johnathan Hernandez - Last Filed: 06/25/17 03:30> Date of Encounter: 06/25/17 Dr. Arthur called me right away when the above seizures started. She had several seizures in a row. By the time I arrived, her seizures broke. I then contacted Dr. Sanchez to discuss next plan of action. In the midst of our phone conversation, patient began seizing again. We decided at that time to proceed with intubation to protect her airway and administer further Versed to abort her seizures. Her seizures easily aborted after another dose of Versed. However, it took several more doses of Versed and Etomidate 30 mg to adequately sedate her for intubation. Dr. Arthur failed to adequately cannulate her airway and I then attempted as well. However, I was unsuccessful too. I therefore contacted anesthesia to assist as I suspected we may need to use a paralytic and further assistance. As we were waiting for anesthesia, respiratory therapy was able to successfully intubate and secure an airway. Pt tolerated procedure well with no immediate complications. I then contacted Dr. Cormier and discussed with him as well. He recommends continuing her on Versed drip and using Propofol as well for adequate sedation. He will repeat EEG in the morning and further advise. She has not had any further seizures with the last dose of Versed and since initiating Versed drip.
[2017-06-25] MEDS: Insulin LISPRO 300 UNITS/3 ML VIAL SQ SCH ×2 (02:18→05:28)
[2017-06-25] MEDS: Acyclovir 750 MG in D5% in Water 250 ML IVPB SCH ×2 (02:21→09:48)
[2017-06-25 03:10] LABS: ABG Base Excess -2.1 mEq/L (-2.0 to 3.0); ABG HCO3 23 mEq/L (21-27); ABG Oxygen Saturation 95 % (95-98); ABG PCO2 41 mmHg (35-45); ABG PH 7.36 pH Units (7.32-7.45); ABG PO2 81 mmHg (85-104); ABG TCO2 24.5 mEq/L (20-26); Blood Gas FiO2 40 %
[2017-06-25] MEDS: Lacri-Lube 3.5 GM TUBE BOTH EYES SCH ×2 (04:42→08:43)
[2017-06-25 04:58] LABS: Basophils % 0.2 %; Eosinophils % 0.1 %; Hematocrit 34.4 % (35.3-44.9); Immature Granulocytes % 0.6 % (0-4); Lymphocytes # 3.6 K/mcL (0.6-4.6); Lymphocytes % 25.7 %; Mean Corpuscular Hemoglobin 30.2 pg (28.0-33.3); Mean Corpuscular Volume 94.5 fL (83.0-100.0); Mean Platelet Volume 9.3 fL (9.4-12.4); Monocytes # 0.5 K/mcL (0.0-1.3); Monocytes % 3.9 %; Neutrophils # 9.7 K/mcL (1.6-8.9); Platelet Count 276 K/mcL (140-400); Red Blood Count 3.64 M/mcL (3.82-4.97); Red Cell Distribution Width 14.6 % (11.5-14.5); Segmented Neutrophils % 69.5 %
[2017-06-25 05:09] LABS: BUN/Creatinine Ratio 15 (6-26); Blood Urea Nitrogen 8 mg/dL (7-20); Carbon Dioxide 21 mEq/L (19-29); Chloride 112 mEq/L (98-109); Glucose 109 mg/dL (70-99); Magnesium 1.8 mg/dL (1.6-2.6); Osmolality,Calculated 289 (280-300); Potassium 3.3 mEq/L (3.5-4.5); Sodium 140 mEq/L (136-145); eGFR For African Americans > 60 (> 60); eGFR For Non-African Americans > 60 (> 60)
[2017-06-25] MEDS: Ringers Solution, Lactated 1,000 ML IVC SCH (05:29)
[2017-06-25] MEDS: methylPREDNISolone 125 MG/2 ML VIAL IVP SCH (05:33)
[2017-06-25] MEDS: *HR* Heparin 5,000 UNIT/ML VIAL SQ SCH (05:33)
--- NOTE | 2017-06-25 06:58 | Pulmonology Progress Note ---
Date of Encounter: 06/25/17 Time of Encounter: 06:57 Assessment and Plan (1) Status epilepticus Current Visit: Yes Status: Acute Management was reviewed during multidisciplinary critical care rounds. SCULPTURE INSTRUCTOR: Status epilepticus in the patient with known underlying epilepsy acute CVA and meningitis have essentially been excluded as etiology despite 5 antiepileptic medications she has had breakthrough seizures and had to be reintubated overnight this is prompted discussion with the patient's primary neurologist for plan to transfer patient to [place] to [facility] where continuous EEG monitoring is available for further treatment of this refractory case of seizure disorder. We will cont antiepileptic medications Pulm: Patient has been intubated and is on the ventilator for airway protection while receiving continuous infusions of sedatives including propofol and Versed. Spontaneous breathing trial when no longer requiring infusion of sedatives Cards: Blood pressure controlled FEN-GI: Nothing by mouth for now continue PPI prophylaxis to prevent stress ulcers Renal: No evidence of ROCHELLE are rhabdomyolysis continue infusion of crystalloid while nothing by mouth ID: CSF not consistent with meningitis stopping antimicrobials Heme/Onc: DVT prophylaxis given Endo: Glucose Monitored and controlled bolus dosing of insulin as needed Integ/MSK: Skin Care per routine ICU Nursing Protocol to prevent ulcers. Lines: All lines examined without evidence of infection Dispo: Transfer to [facility] today CODE: Full code family including mother and aunt updated at bedside and they are in agreement with plan along with the patient's (2) Acute respiratory failure Current Visit: Yes Status: Acute Qualifiers: Respiratory failure complication: unspecified whether with hypoxia or hypercapnia Qualified Code(s): J96.00 - Acute respiratory failure, unspecified whether with hypoxia or hypercapnia (3) Hx of seizure disorder Current Visit: Yes Status: Acute (4) DVT prophylaxis Current Visit: Yes Status: Acute (5) Endotracheally intubated Current Visit: Yes Status: Acute Subjective Principal diagnosis: Status epilepticus Interval history: SI she was successfully extubated did well and was able to engage with her family for many hours around 1 AM she began experiencing seizure-like activity again which resulted in reintubation for airway protection and deep sedation with Versed and propofol there has not been any more witnessed seizure-like activity subsequently. She is otherwise hemodynamically stable. MRI of brain and neck were without any acute changes and CSF was not consistent with bacterial meningitis and frankly extremely unlikely to be viral meningitis either. Objective PUL Vital signs: Last Vital Signs Temp 96.9 F L 06/25/17 04:00 Pulse 77 06/25/17 06:00 Resp 16 06/25/17 06:06 BP 136/78 06/25/17 06:06 Pulse Ox 100 06/25/17 06:06 General appearance: other (Sedated) Eyes: nonicteric ENT: other (Endotracheal tube in satisfactory position) Auscultation: bilateral: clear Cardiovascular: regular rate and rhythm Gastrointestinal: normoactive bowel sounds Integumentary: normal Extremities: no edema pupils equal and round, unable to assess due to mental status Ventilator Settings Ventilator Settings: Ventilator Settings, Last 8 Hours Ventilator Mode VC+ Ventilator Mode VC+ Ventilator Mode VC+ Ventilator Mode VC+ Ventilator Tidal Volume 450 Setting Ventilator Tidal Volume 450 Setting Ventilator Tidal Volume 450 Setting Ventilator Tidal Volume 450 Setting Ventilator Respiratory Rate 16 Setting Ventilator Respiratory Rate 16 Setting Ventilator Respiratory Rate 16 Setting Ventilator Respiratory Rate 16 Setting Actual Respiratory Rate 16 Actual Respiratory Rate 16 Actual Respiratory Rate 26 Positive End Expiratory 5 Pressure Positive End Expiratory 5 Pressure Positive End Expiratory 5 Pressure Positive End Expiratory 5 Pressure Peak Inspiratory Airway 21 Pressure Peak Inspiratory Airway 25 Pressure Peak Inspiratory Airway 26 Pressure Results - Laboratory Findings CBC and BMP: 06/25/17 04:51 06/25/17 04:51 ABG ABG pH 7.36 pH Units (7.32-7.45) 06/25/17 03:00 ABG pCO2 41 mmHg (35-45) 06/25/17 03:00 ABG pO2 81 mmHg (85-104) L 06/25/17 03:00 ABG O2 Saturation 95 % (95-98) 06/25/17 03:00 Abnormal lab findings: Abnormal lab results WBC 14.0 K/mcL (4.3-11.1) H 06/25/17 04:51 RBC 3.64 M/mcL (3.82-4.97) L 06/25/17 04:51 Hgb 11.0 g/dL (11.5-15.4) L 06/25/17 04:51 Hct 34.4 % (35.3-44.9) L 06/25/17 04:51 RDW 14.6 % (11.5-14.5) H 06/25/17 04:51 MPV 9.3 fL (9.4-12.4) L 06/25/17 04:51 Neutrophils # 9.7 K/mcL (1.6-8.9) H 06/25/17 04:51 ABG pO2 81 mmHg (85-104) L 06/25/17 03:00 ABG Base Excess -2.1 mEq/L (-2.0 to 3.0) L 06/25/17 03:00 Potassium 3.3 mEq/L (3.5-4.5) L 06/25/17 04:51 Chloride 112 mEq/L (98-109) H 06/25/17 04:51 Creatinine 0.55 mg/dL (0.57-1.11) L 06/25/17 04:51 Glucose 109 mg/dL (70-99) H 06/25/17 04:51 POC Glucose 111 (58-89) H 06/25/17 05:27 Calcium 8.0 mg/dL (8.6-10.8) L 06/25/17 04:51 Ionized Calcium 1.05 mmol/L (1.15-1.35) L 06/24/17 11:42 Albumin 3.0 g/dL (3.5-5.0) L 06/24/17 04:18 Globulin 3.7 g/dL (2.4-3.5) H 06/24/17 04:18 Albumin/Globulin Ratio 0.8 (1.1-2.2) L 06/24/17 04:18 Triglycerides 263 mg/dL (< 150) H 06/24/17 04:18 Cholesterol 202 mg/dL (< 200) H 06/24/17 04:18 LDL Cholesterol, Calc 117 mg/dL (0-99) H 06/24/17 04:18 VLDL Cholesterol, Calc 53 mg/dL (< 31) H 06/24/17 04:18 HDL Cholesterol 32 mg/dL (40-59) L 06/24/17 04:18 Cholesterol/HDL Ratio 6.3 (0-4.9) H 06/24/17 04:18 CSF Tot Nucleated Cells 10 TNC/mcL (0-5) H 06/24/17 13:06 CSF Glucose 113 mg/dL (40-70) H 06/24/17 13:06 CSF Total Protein 46 mg/dL (15-45) H 06/24/17 13:06 Phenytoin 1.2 mcg/mL (10-20) L 06/24/17 04:18 U Benzodiazepines Scrn Positive ng/mL (Jeflts=783) H 06/22/17 22:16 - Microbiology Findings Microbiology Findings: Microbiology, Last 48 Hours 06/24/17 12:45 Sputum Culture - Preliminary Sputum 06/24/17 13:06 CSF Culture - Preliminary Cerebral Spinal Fluid - Diagnostic Findings Chest x-ray: report reviewed, image reviewed - Clinical Findings Intake & Output: Intake & Output 06/24/17 06/24/17 06/25/17 15:59 23:59 07:59 Intake Total 1140 / 1140 890 / 890 950 / 950 Output Total 600 / 600 350 / 350 850 / 850 Balance 540 / 540 540 / 540 100 / 100 Weight 107.3 kg 113.3 kg Consult Discharge Plan - Plan Referrals: Torsten Ralph, OIM ARCHITECT [Primary Care Provider] -
[2017-06-25 07:33] LABS: Creatine Kinase 58 Units/L (29-168)
[2017-06-25] MEDS: Pantoprazole 40 MG VIAL IVP SCH (09:48)
[2017-06-25] MEDS: Chlorhexidine Rinse 15 ML MOUTHWASH MM SCH (09:48)
[2017-06-25] MEDS: Topiramate 100 MG TABLET PO SCH (09:48)
[2017-06-25] MEDS: OXcarbazepine 150 MG TABLET PO SCH (09:48)
[2017-06-25] MEDS: CLOBAZAM 5 MG PO SCH (09:49)
[2017-06-25] MEDS: levETIRAcetam 1,000 MG in 0.9 % Sodium Chloride 100 ML IVPB SCH (09:53)
[2017-06-25 11:14] VITALS: BP 114/67
[2017-06-25] MEDS ORDERED: *HR* Midazolam HCl 5 MG/5 ML VIAL IVP ONE (12:09)
[2017-06-25] MEDS ORDERED: *HR* Etomidate 40 MG/20 ML VIAL IVP ONE (12:09)
[2017-06-25] MEDS ORDERED: *HR* Midazolam HCl 2 MG/2 ML VIAL IV ONE ×4 (12:09)
--- NOTE | 2017-06-25 13:06 | Discharge Summary ---
Date of Encounter: 06/25/17 Time of Encounter: 13:03 - Discharge Diagnosis (1) Status epilepticus Priority: Primary Status: Acute (2) Acute respiratory failure Priority: Secondary Status: Acute Qualifiers: Respiratory failure complication: unspecified whether with hypoxia or hypercapnia Qualified Code(s): J96.00 - Acute respiratory failure, unspecified whether with hypoxia or hypercapnia (3) Hx of seizure disorder Priority: Secondary Status: Acute (4) DVT prophylaxis Priority: Secondary Status: Acute (5) Endotracheally intubated Priority: Secondary Status: Acute - Discharge Medications Home Medications: Oxcarbazepine [Trileptal] 600 mg PO BID 05/08/15 [History] SUMAtriptan Succinate [Imitrex] 100 mg PO 1-2XD PRN 05/08/15 [History] Clobazam [Onfi] 10 mg PO DAILY 02/28/17 [History] Multivitamin [Multi-Day Vitamins] 1 tab PO DAILY 02/28/17 [History] Tizanidine HCl [Tizanidine HCl] 2 mg PO BID PRN 06/23/17 [History] Topiramate [Topiramate] 200 mg PO BID 06/23/17 [History] Allergies/Adverse Reactions: 3 Allergy/AdvReac Type Severity Reaction Status Date / Time diazepam [From Valium] Allergy Anaphylaxis Verified 03/15/17 23:14 lorazepam [From Ativan] Allergy Anaphylaxis Verified 03/15/17 23:14 fosphenytoin AdvReac Itching Verified 06/23/17 13:21 morphine AdvReac Agitated Verified 03/15/17 23:14 Procedures/tests Complete & Pending: Procedures Performed prior 72 hours Category Date Time Status CT cervical spine wo con [CT] Stat Cat Scan 06/23/17 11:[address] head/brain wo con [CT] Stat Cat Scan 06/23/17 11:[address] lumbar spine wo con [CT] Stat Cat Scan 06/23/17 11:[address] thoracic spine wo con [CT] Stat Cat Scan 06/23/17 11:24 Completed MR angio head wo con [MR] Stat MRI 06/24/17 08:28 Completed MR angio neck wo con [MR] Stat MRI 06/24/17 08:28 Completed MR head/brain wo con [MR] Stat MRI 06/24/17 08:28 Completed Date of admission: 06/23/17 02:11 Primary care physician: Torsten Ralph CNP Consults: 06/23/17 06:03 Consult to Occupational Therapy [CONS] Routine Comment: Evaluate, develop and implement POC Reason for Consult: post ictal state Consult to Physical Therapy [CONS] Routine Comment: Evaluate, develop and implement POC Reason for Consult: post ictal state 06/24/17 06:22 Consult to Pulmonology [CONS] Routine Consulting Provider: Pulm Crit [facility] & [facility] Reason for Consult: vent management Call Completed: Yes 06/24/17 08:27 Consult to Interventional Radiology [CONS] Stat Consulting Provider: Radiology Interventional [facility]s Reason for Consult: LP Call Completed: Yes 06/24/17 11:18 Consult to Anesthesiology [CONS] Stat Consulting Provider: Anesthesia [facility] Reason for Consult: LP Call Completed: Yes 06/24/17 11:23 Consult to Interpret Exam [CONS] Routine Consulting Provider: Jun Cormier I Consult to Interpret Exam: Interpret EEG Discharging clinician: Hola Sanchez Anticipated date of discharge: 06/25/17 - Patient Status Disposition: Transfer Other Overall status at discharge: patient is not back to baseline - Discharge Instructions Follow Up With: Torsten Ralph CNP [Primary Care Provider] - Interval History: Patient admitted with known seizure disorder with active seizing noted. Which progressed to status epilepticus requiring intubation she was loaded with Keppra in addition to continuation of her home antiepileptic medications and continuous infusion of propofol and Versed and neurology had been consulted and EEG will performed was not consistent with epileptiform activity and additional studies including MRI of brain and neck not consistent with acute CVA and lumbar puncture for evaluation of CSF was not consistent with meningitis. Patient was successfully liberated from the ventilator on 06/24 however in the early childhood of 06/25 had another convulsive. That was deemed to be status epilepticus and she was intubated for airway protection and for continuous infusion of sedatives. Discussion with neurologist prompted transfer to tertiary referral center for continuous EEG monitoring she is except for transfer by [facility] and was discharged in stable condition on the [facility] course: Ms. Huff is a 41 year old female - Time Spent with Patient Total time spent providing and/or coordinating discharge services: Greater than 30 minutes - Constitutional Vitals: Temp Pulse Resp BP Pulse Ox 98.5 F 98 27 114/67 94 09/19/17 11:12 06/25/17 11:19 06/25/17 11:12 06/25/17 11:12 06/25/17 11:12 See today's physical examination as it was conducted at the time that patient was to be discharged from hospital
--- NOTE | 2017-06-25 14:23 | Neurology Progress Note ---
Date of Encounter: 06/25/17 Time of Encounter: 07:45 Assessment and Plan (1) Status epilepticus Status: Acute Patient had an other spell of multiple seizures that need to be reintubated and now she remains on Versed and propofol she remains on multiple anticonvulsive medication including IV load of Keppra, Topamax, Trileptal, and ONFI. So far her workup including MRI of the brain as well as a spinal tap also been negative Stat EEG also did not shows any evidence of significant epileptiform discharges in fact for someone who is venous status seems to be quite and usually normal without any focal slowing or any other significant abnormality noted on EEG As she is remains on multiple anticonvulsive medication with significantly normal EEG and normal workup including MRI and a spinal tap at this time I do think that we need to look into other causes of these seizures in fact we do have to feel our diagnoses that indeed these true epileptic status because are these are some other spells of altered consciousness, perhaps may be a CONVERSION REACTION, so far we have excluded all infectious and metabolic abnormalities as well as any vascualar abnormalities, at this point I recommend , the patient needed to be transferred to a tertiary care center for continuous EEG monitoring particularly when she is off sedation and to see indeed these true epileptic spells or perhaps any other underlying behavioral process. discussed in detail with the ICU team as well as the patient mother who also agrees with the plan. (2) Seizure Status: Acute (3) Chronic migraine without aura, intractable, with status migrainosus Status: Acute Subjective Principal diagnosis: Status epilepticus Interval history: Patient went into status again last night and has to be intubated, she did well yesterday and as no seizures earlier in evening she was extubated, she was quite alert and awake and was able to have an conversation though she remains quite worried about her upcoming surgery as well as about her father who was recently diagnosed with stomach cancer, Mother also acknowledges that she has been under a lot of stress and perhaps may be the contributing factor to these multiple seizures that she has been experiencing regardless she did fairly well and was extubated until last night when she went into few [id number] seizures and because of that she got to be intubated to protect her airways. She continued to be on Keppra in addition to continuation of her home antiepileptic medications and continuous infusion of propofol and Versed, MRI of brain and neck not consistent with acute CVA , lumbar puncture for evaluation of CSF was not consistent with meningitis. Remain intubated this morning and remain on propofol and Versed e Objective - Constitutional Vitals: Temp Pulse Resp BP Pulse Ox 98.5 F 98 27 114/67 94 06/25/17 11:12 06/25/17 11:19 06/25/17 11:12 06/25/17 11:12 06/25/17 11:12 - Neurological Exam Sensorimotor examination: Present: other (Limited neurological examination due to sedation and intubation) Motor Examination: Present: full strength in all major muscle groups Motor examination - left side: 02/08: deltoids, biceps, triceps, wrist flexion, wrist extension, hip flexors, mud logger, quadriceps, tibialis Anterior, toe extension (EHL), plantarflexion Mental Status Examination: Present: awake, alert, oriented to person, oriented to place, oriented to time, follows commands appropriately, answers questions appropriately, no agnosia, no aphasia, no aproxia Cranial nerve examination: Present: PERRL, EOMI, visual temple intact, corneal reflexes brisk symmetrically, sensory to face intact, mastication intact, no facial asymmetry is present, no dysarthria, hearing is intact symmetrically, soft palate elevates bilaterally upon phonation, gag reflex intact, flexes SCM and trapezius muscles symmetrically with full power, tongue protrudes midline, no atrophy or facial fasiculations present Cerebellar examination: Present: no dysmetria, performs finger to nose and heel to alston symmetrically without ataxia, no gait ataxia, no truncal ataxia, no difficulty with rapid alternating movements Results - Laboratory Findings CBC and BMP: 06/25/17 04:51 06/25/17 04:51 Abnormal lab findings: Abnormal lab results WBC 14.0 K/mcL (4.3-11.1) H 06/25/17 04:51 RBC 3.64 M/mcL (3.82-4.97) L 06/25/17 04:51 Hgb 11.0 g/dL (11.5-15.4) L 06/25/17 04:51 Hct 34.4 % (35.3-44.9) L 06/25/17 04:51 RDW 14.6 % (11.5-14.5) H 06/25/17 04:51 MPV 9.3 fL (9.4-12.4) L 06/25/17 04:51 Neutrophils # 9.7 K/mcL (1.6-8.9) H 06/25/17 04:51 ABG pO2 81 mmHg (85-104) L 06/25/17 03:00 ABG Base Excess -2.1 mEq/L (-2.0 to 3.0) L 06/25/17 03:00 Potassium 3.3 mEq/L (3.5-4.5) L 06/25/17 04:51 Chloride 112 mEq/L (98-109) H 06/25/17 04:51 Creatinine 0.55 mg/dL (0.57-1.11) L 06/25/17 04:51 Glucose 109 mg/dL (70-99) H 06/25/17 04:51 POC Glucose 111 (58-89) H 06/25/17 05:27 Calcium 8.0 mg/dL (8.6-10.8) L 06/25/17 04:51 Ionized Calcium 1.05 mmol/L (1.15-1.35) L 06/24/17 11:42 Albumin 3.0 g/dL (3.5-5.0) L 06/24/17 04:18 Globulin 3.7 g/dL (2.4-3.5) H 06/24/17 04:18 Albumin/Globulin Ratio 0.8 (1.1-2.2) L 06/24/17 04:18 Triglycerides 263 mg/dL (< 150) H 06/24/17 04:18 Cholesterol 202 mg/dL (< 200) H 06/24/17 04:18 LDL Cholesterol, Calc 117 mg/dL (0-99) H 06/24/17 04:18 VLDL Cholesterol, Calc 53 mg/dL (< 31) H 06/24/17 04:18 HDL Cholesterol 32 mg/dL (40-59) L 06/24/17 04:18 Cholesterol/HDL Ratio 6.3 (0-4.9) H 06/24/17 04:18 CSF Tot Nucleated Cells 10 TNC/mcL (0-5) H 06/24/17 13:06 CSF Glucose 113 mg/dL (40-70) H 06/24/17 13:06 CSF Total Protein 46 mg/dL (15-45) H 06/24/17 13:06 Phenytoin 1.2 mcg/mL (10-20) L 06/24/17 04:18 U Benzodiazepines Scrn Positive ng/mL ([id number]) H 06/22/17 22:16 Consult Discharge Plan - Plan Referrals: Torsten Ralph CNP [Primary Care Provider] -
--- NOTE | 2017-06-25 18:11 | Electrocardiograph Report ---
[place] [id number] Test Date: 2017-06-23 Pat Name: Faiza Huff Department: 115 Room: [facility] Gender: Production Aide: [id number] : 1975 Requested By: Deja Moe Order Number: [id number] Reading MD: Susie Friedman Measurements Intervals [place] Rate: 82 P: 42 OR: 126 QRS: 14 QRSD: 87 T: 65 QT: 387 QTc: 425 Interpretive Statements SINUS RHYTHM NONSPECIFIC T-WAVE ABNORMALITY Electronically Signed On 06-25-2017 18:09:43 EDT by Susie Friedman
[2017-06-27 07:39] LABS: HSV 1 Glycoprotein G IgG CSF 0.3 IV (<=0.89); HSV 2 Glycoprotein G IgG CSF 0.02 IV (<=0.89)
== END 2017-06-25 12:10 | disposition other institution (70) | DRG 100 ==
LOC: EMEROO 21:46 → 3ANU 06-23 02:11 → 2NNU 06-23 16:04 → ICNU 06-24 05:51
PROVIDERS: ADMIT Family Medicine; ATTEND Internal Medicine

== ENCOUNTER 2021-07-14 19:56 | Inpatient (IN) ==
[2021-07-14 20:50] LABS: Basophils # 0.1 K/mcL (0.0-0.2); Basophils % 0.9 %; Eosinophils # 0.2 K/mcL (0.0-0.6); Eosinophils % 1.3 %; Hemoglobin 15.4 g/dL (11.5-15.4); Immature Granulocytes % 0.3 % (0-4); Lymphocytes # 5.8 K/mcL (0.6-4.6); Lymphocytes % 41.6 %; Mean Corpuscular HGB Conc 32.8 g/dL (31.6-35.5); Mean Corpuscular Volume 91.6 fL (83.0-100.0); Mean Platelet Volume 9.7 fL (9.4-12.4); Monocytes # 0.7 K/mcL (0.0-1.3); Neutrophils # 7.1 K/mcL (1.6-8.9); Platelet Count 298 K/mcL (140-400); Red Blood Count 5.13 M/mcL (3.82-4.97); Segmented Neutrophils % 50.9 %
[2021-07-14 20:59] LABS: Amphetamine Screen,Urine Negative ng/mL (Cutoff=1000); Barbiturate Screen,Urine Negative ng/mL (Cutoff=200); Benzodiazepines Screen,Urine Positive ng/mL (Cutoff=200); Cannabinoid Screen,Urine Negative ng/mL (Cutoff = 50); Cocaine Screen,Urine Negative ng/mL (Cutoff= 300); Opiate Screen,Urine Negative ng/mL (Cutoff=300); Phencyclidine Screen,Urine Negative ng/mL (Cutoff=25)
[2021-07-14 21:00] LABS: Bacteria,Urine Few per hpf (None-Few); Bilirubin,Urine Negative (Negative); Blood,Urine Negative (Negative); Clarity,Urine Turbid (Clear); Color,Urine Light-Yellow (Yellow); Glucose,Urine (UA) >=1000 mg/dL (Normal); Ketones,Urine Negative (Negative); Leukocyte Esterase,Urine Negative (Negative); Mucus,Urine Few per lpf (None-Few); Nitrite,Urine Negative (Negative); PH,Urine 7.5 pH Units (5.0-8.0); Protein,Urine Negative (Neg-Trace); Specific Gravity,Urine > 1.030 (1.010-1.025); Squamous Epithelial Cell,Urine Few per hpf (None-Few); Urobilinogen,Urine Normal (Normal)
[2021-07-14 21:09] LABS: Acetaminophen < 10 mcg/mL (10-20); BUN/Creatinine Ratio 14 (6-26); Blood Urea Nitrogen 10 mg/dL (6-20); Calcium 9.7 mg/dL (8.6-10.3); Carbon Dioxide 20 mEq/L (23-29); Chloride 105 mEq/L (98-107); Ethanol < 10 mg/dL (Less than 10); Glucose 162 mg/dL (70-105); Osmolality,Calculated 285 (280-300); Potassium 3.7 mEq/L (3.5-5.1); Salicylate < 2.5 mg/dL (15.0-30.0); Sodium 136 mEq/L (136-145); eGFR For African Americans > 60 (> 60); eGFR For Non-African Americans > 60 (> 60)
[2021-07-14 21:16] LABS: Platelet Estimate Normal (Normal); Reactive Lymphocytes Present (Not Present); Smudge Cells Present (Not Present)
[2021-07-14 21:42] LABS: Influenza A PCR Negative (Negative); Influenza B PCR Negative (Negative); Resp. Syncytial Virus PCR Negative (Negative)
[2021-07-14 21:50] LABS: SARS-CoV-2 by PCR (In House) Negative (Negative)
[2021-07-15 00:13] LABS: Alanine Aminotransferase 30 Units/L (7-52); Albumin 4.2 g/dL (3.5-5.7); Albumin/Globulin Ratio 1.3 (1.1-2.2); Alkaline Phosphatase 77 Units/L (34-104); Aspartate Amino Transferase 34 Units/L (13-39); Bilirubin,Indirect 0.3 mg/dL (0.0-1.0); Bilirubin,Total 0.3 mg/dL (0.3-1.0); Globulin 3.3 g/dL (2.4-3.5); Total Protein 7.5 g/dL (6.4-8.9)
[2021-07-15] MEDS ORDERED: Haloperidol Lactate 5 MG/ML VIAL IM PRN (00:30)
[2021-07-15] MEDS ORDERED: haloperidoL 5 MG TABLET PO PRN (00:30)
[2021-07-15] MEDS: hydrOXYzine pamoate 25 MG CAPSULE PO PRN (02:23)
[2021-07-15] MEDS: traZODone 50 MG TABLET PO PRN (02:23)
[2021-07-15] MEDS: Nicotine 21 MG PATCH.TD24 TD SCH (03:09)
[2021-07-15] MEDS ORDERED: tiZANidine 4 MG TABLET PO SCH (09:00)
[2021-07-15] MEDS ORDERED: lamoTRIgine 100 MG TABLET PO SCH (09:00)
[2021-07-15] MEDS: Topiramate 100 MG TABLET PO SCH ×2 (10:35→20:49)
[2021-07-15] MEDS: CLOBAZAM 20 MG PO SCH (10:44)
[2021-07-15] MEDS: (Empagliflozin [Jardiance] 10 MG Tablet) PO SCH (10:44)
[2021-07-15] MEDS ORDERED: lamoTRIgine 100 MG TABLET PO ONE (11:45)
[2021-07-15] MEDS ORDERED: Dextrose Gel 15 GM/37.5 ML TUBE PO PRN ×2 (12:15)
[2021-07-15] MEDS: ALPRAZolam 0.5 MG TABLET PO SCH ×3 (13:06→20:49)
[2021-07-15] MEDS: tiZANidine 4 MG TABLET PO SCH ×2 (15:51→20:48)
[2021-07-15] MEDS: Insulin LISPRO 300 UNITS/3 ML VIAL SUBQ SCH ×2 (16:50→20:49)
[2021-07-15] MEDS: lamoTRIgine 100 MG TABLET PO SCH (20:49)
[2021-07-16] MEDS: CLOBAZAM 20 MG PO SCH ×3 (01:06→20:52)
[2021-07-16] MEDS ORDERED: Nicotine 21 MG PATCH.TD24 TD SCH (05:00)
[2021-07-16] MEDS: Nicotine 21 MG PATCH.TD24 TD SCH ×2 (06:51→08:05)
[2021-07-16] MEDS: Insulin LISPRO 300 UNITS/3 ML VIAL SUBQ SCH ×4 (08:03→20:21)
[2021-07-16] MEDS: tiZANidine 4 MG TABLET PO SCH ×3 (08:06→20:20)
[2021-07-16] MEDS: lamoTRIgine 100 MG TABLET PO SCH ×2 (08:06→20:20)
[2021-07-16] MEDS: ALPRAZolam 0.5 MG TABLET PO SCH ×3 (08:07→20:21)
[2021-07-16] MEDS: (Empagliflozin [Jardiance] 10 MG Tablet) PO SCH (08:11)
[2021-07-16] MEDS: Topiramate 100 MG TABLET PO SCH ×2 (08:51→20:21)
[2021-07-16] MEDS: Neosporin OINT 15 GM TUBE TP PRN ×2 (14:51→16:05)
[2021-07-16] MEDS: traZODone 50 MG TABLET PO PRN (20:21)
[2021-07-16] MEDS: hydrOXYzine pamoate 25 MG CAPSULE PO PRN (20:21)
[2021-07-17] MEDS: Insulin LISPRO 300 UNITS/3 ML VIAL SUBQ SCH ×4 (08:24→21:35)
[2021-07-17] MEDS: Topiramate 100 MG TABLET PO SCH ×2 (09:22→21:33)
[2021-07-17] MEDS: Nicotine 21 MG PATCH.TD24 TD SCH (09:22)
[2021-07-17] MEDS: tiZANidine 4 MG TABLET PO SCH ×3 (09:24→21:32)
[2021-07-17] MEDS: lamoTRIgine 100 MG TABLET PO SCH ×2 (09:25→21:32)
[2021-07-17] MEDS: ALPRAZolam 0.5 MG TABLET PO SCH ×3 (09:25→21:32)
[2021-07-17] MEDS: CLOBAZAM 20 MG PO SCH (09:33)
[2021-07-17] MEDS: (Empagliflozin [Jardiance] 10 MG Tablet) PO SCH (09:33)
[2021-07-18] MEDS: CLOBAZAM 20 MG PO SCH ×3 (01:52→21:23)
[2021-07-18] MEDS: Neosporin OINT 15 GM TUBE TP PRN ×2 (05:17→09:28)
[2021-07-18] MEDS: Insulin LISPRO 300 UNITS/3 ML VIAL SUBQ SCH ×4 (09:22→21:19)
[2021-07-18] MEDS: Nicotine 21 MG PATCH.TD24 TD SCH (09:23)
[2021-07-18] MEDS: Topiramate 100 MG TABLET PO SCH ×2 (09:24→21:16)
[2021-07-18] MEDS: ALPRAZolam 0.5 MG TABLET PO SCH ×3 (09:25→21:17)
[2021-07-18] MEDS: lamoTRIgine 100 MG TABLET PO SCH ×2 (09:25→21:16)
[2021-07-18] MEDS: tiZANidine 4 MG TABLET PO SCH ×3 (09:25→21:16)
[2021-07-18] MEDS: (Empagliflozin [Jardiance] 10 MG Tablet) PO SCH (09:33)
[2021-07-18] MEDS: traZODone 50 MG TABLET PO PRN (21:16)
[2021-07-19] MEDS: Insulin LISPRO 300 UNITS/3 ML VIAL SUBQ SCH ×4 (08:20→21:22)
[2021-07-19] MEDS: Nicotine 21 MG PATCH.TD24 TD SCH (08:21)
[2021-07-19] MEDS: ALPRAZolam 0.5 MG TABLET PO SCH ×3 (08:21→21:15)
[2021-07-19] MEDS: lamoTRIgine 100 MG TABLET PO SCH ×2 (08:21→21:21)
[2021-07-19] MEDS: tiZANidine 4 MG TABLET PO SCH ×3 (08:21→21:16)
[2021-07-19] MEDS: Topiramate 100 MG TABLET PO SCH ×2 (08:22→21:15)
[2021-07-19] MEDS: CLOBAZAM 20 MG PO SCH ×2 (09:19→21:18)
[2021-07-19] MEDS: (Empagliflozin [Jardiance] 10 MG Tablet) PO SCH (09:19)
[2021-07-19] MEDS: Neosporin OINT 15 GM TUBE TP PRN ×2 (15:14→21:16)
[2021-07-19] MEDS ORDERED: Lactulose Oral Soln 20 GM/30 ML UDC PO SCH ×2 (21:00)
[2021-07-19] MEDS: traZODone 50 MG TABLET PO PRN (21:15)
[2021-07-19] MEDS: hydrOXYzine pamoate 25 MG CAPSULE PO PRN (21:15)
[2021-07-20] MEDS: Insulin LISPRO 300 UNITS/3 ML VIAL SUBQ SCH (08:23)
[2021-07-20] MEDS: Nicotine 21 MG PATCH.TD24 TD SCH (08:24)
[2021-07-20] MEDS: lamoTRIgine 100 MG TABLET PO SCH (08:25)
[2021-07-20] MEDS: tiZANidine 4 MG TABLET PO SCH (08:26)
[2021-07-20] MEDS: Topiramate 100 MG TABLET PO SCH (08:26)
[2021-07-20] MEDS: ALPRAZolam 0.5 MG TABLET PO SCH (08:26)
[2021-07-20] MEDS: CLOBAZAM 20 MG PO SCH (08:30)
[2021-07-20] MEDS: (Empagliflozin [Jardiance] 10 MG Tablet) PO SCH (08:44)
[2021-07-20 09:22] VITALS: BP 145/84; PULSE 76; TEMP 98.4; O2SAT 96
== END 2021-07-20 11:32 | disposition home or self-care (01) | DRG 885 ==
LOC: EMEROOARM 19:56 → 1ANU 07-15 01:29
PROVIDERS: ADMIT Psychiatry & Neurology Psychiatry; ATTEND Psychiatry & Neurology Psychiatry